=== PATIENT | female | born 1945 | race African-American/Black ===

== ENCOUNTER 2017-12-03 21:46 | Observation (INO) | payer MEDICARE, OTHER ==
[~2017-12-03] VITALS: Ht 152.4 cm; Wt 72.7 kg
[~2017-12-03 21:46] MED LIST: ALBU8I INH; ASPI81 PO; CLOP75 PO; FURO1TAB93 PO; GLIP5 PO; HYDR100T2 PO; IPRA17I INH; ISOS60 PO; LISI-360 PO; METO50 PO; MIRA33502 PO; POTA-243 PO; PROC90TA PO; SIMV40 PO; ZOLP1TAB32 PO
[2017-12-03 21:47] VITALS: BP 226/87; PULSE 74; RESP 20; TEMP 98.7; O2SAT 99
[2017-12-03 22:21] VITALS: O2SAT 98
--- NOTE | 2017-12-03 22:22 | PD ---
HPI Chief Complaint: Complaint Time Seen by Provider: 22:14 Travel History International Travel<30 days: No Contact w/Intl Traveler<30days: No Traveled to known affect area: No History of Present Illness HPI 72-year-old female with ESRD on HD (MWF), last dialyzed today, here for evaluation of lower abdominal pain, dysuria, foul-smelling urine. Symptoms started suddenly at around 6:00 PM. She does still make a little bit of urine. She has had subjective fevers and chills. History of cholecystectomy. No other abdominal surgeries. Patient reports that today while at dialysis she became nauseous and had 3 or 4 episodes of vomiting. She has also had some loose/mucousy bowel movements. Abdominal pain is lower/suprapubic, described as pressure/burning, 10 out of 10, constant, worse with movements. PFSH Past Medical History Arthritis: Yes Asthma: No Autoimmune Disease: Yes Blood Disorders: No Anxiety: No Depression: No Heart Rhythm Problems: No Cancer: Yes (Uterine) Cardiac Catheterization: Yes Cardiovascular Problems: Yes High Cholesterol: Yes Chemotherapy: No Chest Pain: No Congestive Heart Failure: Yes COPD: Yes Cerebrovascular Accident: No Coronary Artery Disease: Yes Diabetes: Yes Patient Takes Glucophage: Yes Diminished Hearing: No Endocrine: Yes Gastrointestinal Disorders: Yes GERD: No Genitourinary: Yes (UTI'S) Headaches: Yes Hepatitis: No Hiatal Hernia: No Hypertension: Yes Immune Disorder: Yes Kidney Stones: No Musculoskeletal: Yes (CHRONIC BACK LOW PAIN) Neurologic: Yes Psychiatric: No Reproductive: No Respiratory: Yes (CHRONIC BRONCHITIS) Immunizations Current: No Migraines: Yes Myocardial Infarction: Yes (X2) Radiation Therapy: No Renal Failure: Yes (RENAL DISEASE) Seizures: No Sleep Apnea: No Thyroid Disease: No Triglycerides - High: Yes Ulcer: No Tetanus Vaccination: < 5 Years Influenza Vaccination: Yes PNEUMOCCOCAL Vaccine (Year): 3 Menopausal: Yes : 2 Para: 2 Past Surgical History Abdominal Surgery: No AICD: No Appendectomy: No Arteriovenous Shunt: No Cardiac Surgery: Yes (STENT) Section: Yes Cholecystectomy: No Coronary Artery Bypass Graft: No Coronary Stent: Yes (x 2 IN 2002) Ear Surgery: No Endocrine Surgery: No Eye Surgery: No Genitourinary Surgery: No Gynecologic Surgery: Yes (HYSTERECTOMY) Hysterectomy: Yes (1975) Insulin Pump: No Joint Replacement: No Neurologic Surgery: No Oral Surgery: No Pacemaker: No Thoracic Surgery: No Tonsillectomy: Yes 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) Family History Family Myocardial Infarction: Yes (brother) Social History Alcohol Use: No Tobacco Use: No Substance Use: No Allergies-Medications (Allergen,Severity, Reaction): Coded Allergies: acetaminophen (Unverified Allergy, Severe, ITCH, 12/03/17) ketorolac (Unverified Allergy, Severe, HIVES, 12/03/17) oxycodone (Unverified Allergy, Severe, ITCH, 12/03/17) *MDRO Multi-Drug Resistant Organism (Verified Allergy, Unknown, 12/03/17) MRSA 03/2008 SPUTUM Reported Meds & Prescriptions Reported Meds & Active Scripts Active Review of Systems Except as stated in HPI: all other systems reviewed are Neg Physical Exam Narrative GENERAL: Well-developed, well-nourished, comfortable, no apparent distress. SKIN: Focused skin assessment warm/dry. HEAD: Atraumatic. Normocephalic. EYES: Pupils equal and round. No scleral icterus. No injection or drainage. ENT: No nasal bleeding or discharge. Mucous membranes pink and moist. NECK: Trachea midline. No JVD. CARDIOVASCULAR: Regular rate and rhythm. No murmur appreciated. Right upper extremity dialysis fistula with thrill and bruit. RESPIRATORY: No accessory muscle use. Clear to auscultation. Breath sounds equal bilaterally. GASTROINTESTINAL: Abdomen soft, nondistended. Moderate lower abdominal/ suprapubic tenderness without peritoneal signs. Rest of abdomen is mildly tender. No hernias. Normal bowel sounds. MUSCULOSKELETAL: No obvious deformities. No clubbing. No cyanosis. No edema. NEUROLOGICAL: Awake and alert. No obvious cranial nerve deficits. Motor grossly within normal limits. Normal speech. PSYCHIATRIC: Appropriate mood and affect; insight and judgment normal. Data Data Last Documented VS Vital Signs Date Time Temp Pulse Resp B/P (MAP) Pulse Ox O2 Delivery O2 Flow Rate FiO2 12/04/17 00:01 71 18 178/74 (108) 100 Room Air 12/03/17 21:47 98.7 Orders Orders Complete Blood Count With Diff (12/03/17 22:20) Comprehensive Metabolic Panel (12/03/17 22:20) Prothrombin Time / Inr (Pt) (12/03/17 22:20) Act Partial Throm Time (Ptt) (12/03/17 22:20) Urinalysis - C+S If Indicated (12/03/17 22:20) Ct Abd/Pel W/O Iv Contrast (12/03/17 22:20) Iv Access Insert/Monitor (12/03/17 22:20) Ecg Monitoring (12/03/17 22:20) Oximetry (12/03/17 22:20) Morphine Inj (Morphine Inj) (12/03/17 22:30) Sodium Chloride 0.9% Flush (Ns Flush) (12/03/17 22:30) Ondansetron Odt (Zofran Odt) (12/03/17 22:30) Urine Culture (12/03/17 22:25) Ceftriaxone Inj (Rocephin Inj) (12/03/17 23:15) Piperacil-Tazo 3.375 Gm Premix (Zosyn 3. (12/04/17 00:15) Labs Laboratory Tests Test 12/03/17 22:25 White Blood Count 10.1 TH/MM3 Red Blood Count 4.28 MIL/MM3 Hemoglobin 12.3 GM/DL Hematocrit 38.3 % Mean Corpuscular Volume 89.5 FL Mean Corpuscular Hemoglobin 28.7 PG Mean Corpuscular Hemoglobin Concent 32.1 % Red Cell Distribution Width 17.0 % Platelet Count 200 TH/MM3 Mean Platelet Volume 9.5 FL Neutrophils (%) (Auto) 73.4 % Lymphocytes (%) (Auto) 15.3 % Monocytes (%) (Auto) 5.5 % Eosinophils (%) (Auto) 5.3 % Basophils (%) (Auto) 0.5 % Neutrophils # (Auto) 7.4 TH/MM3 Lymphocytes # (Auto) 1.6 TH/MM3 Monocytes # (Auto) 0.6 TH/MM3 Eosinophils # (Auto) 0.5 TH/MM3 Basophils # (Auto) 0.0 TH/MM3 CBC Comment DIFF FINAL Differential Comment Prothrombin Time 10.6 SEC Prothromb Time International Ratio 1.0 RATIO Activated Partial Thromboplast Time 27.2 SEC Urine Color YELLOW Urine Turbidity CLOUDY Urine pH 7.0 Urine Specific [place] 1.013 Urine Protein 300 mg/dL Urine Glucose (UA) 70 mg/dL Urine Ketones 10 mg/dL Urine Occult Blood MOD Urine Nitrite NEG Urine Bilirubin NEG Urine Urobilinogen LESS THAN 2.0 MG/DL Urine Leukocyte Esterase LARGE Urine RBC 39 /hpf Urine WBC /hpf Urine WBC Clumps MANY Urine Squamous Epithelial Cells 3 /hpf Urine Bacteria MANY /hpf Urine Mucus MOD /lpf Microscopic Urinalysis Comment CULTURE INDICATED Blood Urea Nitrogen 36 MG/DL Creatinine 4.20 MG/DL Random Glucose 226 MG/DL Total Protein 7.7 GM/DL Albumin 3.5 GM/DL Calcium Level 9.3 MG/DL Alkaline Phosphatase 216 U/L Aspartate Amino Transf (AST/SGOT) 20 U/L Alanine Aminotransferase (ALT/SGPT) 22 U/L Total Bilirubin 0.4 MG/DL Sodium Level 137 MEQ/L Potassium Level 3.9 MEQ/L Chloride Level 100 MEQ/L Carbon Dioxide Level 25.2 MEQ/L Anion Gap 12 MEQ/L Estimat Glomerular Filtration Rate 13 ML/MIN [facility] Medical Decision Making Medical Screen Exam Complete: Yes Emergency Medical Condition: Yes Differential Diagnosis UTI, cystitis, colitis, diverticulitis, appendicitis, gastroenteritis, metabolic abnormality Narrative Course Vital signs reviewed. CBC: WBC 10.1, hemoglobin 12.3, hematocrit 38.3, platelets 200, neutrophils 73.4 %. CMP is remarkable for BUN 36, creatinine 4.2, GFR 13, random glucose 226, otherwise unremarkable. UA: Cloudy, 300 protein, 70 glucose, moderate occult blood, large leukocyte esterase, 39 RBCs, innumerable WBCs, many WBC clumps, many bacteria, moderate mucus. CT abdomen pelvis: CONCLUSION: Abnormal gas collection within the bladder wall with a few gas bubbles outside of the bladder and findings are mostly consistent with gangrenous cystitis. Findings were discussed with Dr Cerda at the time of this dictation at 11:52 hours. Patient was given 1 g of IV Rocephin after her UA resulted. After her CT abdomen and pelvis resulted, I discussed the findings with the patient. She states that couple of months ago she was seen at [facility] for urinary retention and had a Kang catheter placed at that time. She followed up as an outpatient with a urologist whom she cannot recall the name of and was self catheterizing for about a month in the mornings. The last time she self catheterized was in September of this year. 12:00 AM: Case discussed with on-call urologist Dr. Nicole who states that the patient requires antibiotics at this time. No surgical intervention. States that if she is doing well, can be discharged home with oral antibiotics and outpatient follow-up with urology in 1 week. Patient continues to have suprapubic discomfort despite receiving morphine. She will be given a dose of IV Zosyn. Given ongoing pain with above CT findings and UA findings, will admit the patient for further treatment. Case discussed with hospitalist Dr. Smith who will admit the patient to his service. Diagnosis Primary Impression: Cystitis Admitting Information Admitting Physician Requests: Admit Frederick Cerda MD December 03, 2017 22:22
[2017-12-03] MEDS ORDERED: MORPHINE SULFATE 4 MG/ML INJ IV PUSH ONE (22:30)
[2017-12-03] MEDS ORDERED: SODIUM CHLORIDE 0.9% FLUSH 10 ML FLUSH IV FLUSH PRN (22:30)
[2017-12-03] MEDS ORDERED: ONDANSETRON ODT 4 MG TAB PO ONE (22:30)
[2017-12-03 22:45] LABS: AUTOMATED NEUTROPHIL # 7.4 TH/MM3 (1.8-7.7); BASOPHIL % 0.5 % (0.0-2.0); EOSINOPHIL # 0.5 TH/MM3 (0-0.4); EOSINOPHIL % 5.3 % (0.0-4.0); HEMATOCRIT 38.3 % (35.0-46.0); HEMOGLOBIN 12.3 GM/DL (11.6-15.3); LYMPH % 15.3 % (9.0-44.0); LYMPHOCYTE # 1.6 TH/MM3 (1.0-4.8); MEAN CELL VOLUME 89.5 FL (80.0-100.0); MEAN CORPUSCULAR HEMOGLOBIN 28.7 PG (27.0-34.0); MEAN CORPUSCULAR HGB CONC 32.1 % (32.0-36.0); MEAN PLATELET VOLUME 9.5 FL (7.0-11.0); MONO % 5.5 % (0.0-8.0); MONOCYTE # 0.6 TH/MM3 (0-0.9); NEUT % 73.4 % (16.0-70.0); PLATELET COUNT 200 TH/MM3 (150-450); RED BLOOD COUNT 4.28 MIL/MM3 (4.00-5.30); WHITE BLOOD COUNT 10.1 TH/MM3 (4.0-11.0)
[2017-12-03 22:57] LABS: PROTHROMBIN TIME - PATIENT 10.6 SEC (9.8-11.6)
[2017-12-03 23:02] LABS: ALBUMIN 3.5 GM/DL (3.4-5.0); ALT (GPT) 22 U/L (10-53); AST (GOT) 20 U/L (15-37); BICARBONATE 25.2 MEQ/L (21.0-32.0); BLOOD UREA NITROGEN 36 MG/DL (7-18); CALCIUM 9.3 MG/DL (8.5-10.1); CHLORIDE 100 MEQ/L (98-107); GLOMERULAR FILTRATION RATE 13 ML/MIN (>89); GLUCOSE,RANDOM 226 MG/DL (74-106); SODIUM (NA) 137 MEQ/L (136-145)
[2017-12-03 23:04] LABS: ALKALINE PHOSPHATASE 216 U/L (45-117); TOTAL BILIRUBIN ADULT 0.4 MG/DL (0.2-1.0); TOTAL PROTEIN 7.7 GM/DL (6.4-8.2)
[2017-12-03 23:08] LABS: BACTERIA, URINE MANY /hpf; BILIRUBIN, URINE NEG (NEG); BLOOD, URINE MOD (NEG); GLUCOSE,URINE 70 mg/dL (NEG); KETONE, URINE 10 mg/dL (NEG); MUCUS URINE MOD /lpf (OCC); NITRITE,URINE NEG (NEG); SQUAMOUS EPITHELIAL CELL URINE 3 /hpf (0-5); URINE COLOR YELLOW (YELLW/STRAW); URINE LEUKOCYTE ESTERASE LARGE (NEG); WHITE BLOOD CELL CLUMPS MANY
[2017-12-03] MEDS ORDERED: cefTRIAXone INJ 1,000 MG in SODIUM CHLORIDE 0.9% INJ 100 ML IV ONE (23:15)
--- NOTE | 2017-12-03 23:56 | RADRPT ---
EXAM DATE: 12/03/2017 11:43 PM EDT AGE/SEX: 72 years / Female INDICATIONS: Abdomen pain with vomiting. CLINICAL DATA: This is the patient's initial encounter. Patient reports that signs and symptoms have been present for 1 day and indicates a pain score of 5/10. MEDICAL/SURGICAL HISTORY: Cardiovascular disease. Hypertension. Diabetes mellitus type II. C OPD Renal failure Dialysis Uterine cancer Hysterectomy. Coronary artery stent. RADIATION DOSE: 18.91 CTDI (mGy) [place] [facility] [place]AST, 01/10/2013. . TECHNIQUE: Multiple contiguous axial images were obtained through the abdomen. Images were obtained using multiple row detector helical technique. Using dose reduction techniques, radiation dose was ke pt as low as reasonably achievable to obtain optimal diagnostic quality images. FINDINGS: Abdomen CT: The liver, spleen, pancreas, adrenals are unremarkable. The kidneys are small bilaterally and there i s a small cyst in the left kidney. There is no evidence for any appreciable pathological adenopathy, free fluid, or bowel obstruction. Tiny pericardial effusion is seen. There are atherosclerotic calci fications involving the aorta and iliac arteries chronic in nature. Pelvic CT: There is no evidence for mass, abscess formation, or any significant adenopathy within the pelvis. T here is abnormal gas collection involving the wall of the bladder diffusely. There are a few bubbles of gas that are outside the bladder intraperitoneal within the pelvis. CONCLUSION: Abnormal gas collection within the bladder wall with a few gas bubbles outside of the bl adder and findings are mostly consistent with gangrenous cystitis. Findings were discussed with Dr Jose bunn at the time of this dictation at 11:52 hours. Electronically signed by: Alva Rolon MD 12/03/2017 11:54 PM EDT
[2017-12-04] VITALS (9 sets, daily range): BP systolic 135–193; BP diastolic 63–80; PULSE 62–75; RESP 16–20; TEMP 97.5–98.4; O2SAT 97–100
[2017-12-04] MEDS ORDERED: PIPERACIL-TAZO 3.375 GM PREMIX 50 ML IV ONE (00:15)
[2017-12-04] MEDS ORDERED: SENNOSIDES 8.6 MG TAB PO PRN (00:30)
[2017-12-04] MEDS ORDERED: LACTULOSE SYRUP 20 GM/30 ML CUP PO PRN (00:30)
[2017-12-04] MEDS ORDERED: NALOXONE HCL 0.4 MG/ML AMP IV PUSH PRN (00:30)
[2017-12-04] MEDS ORDERED: MAGNESIUM HYDROXIDE SUSP 30 ML CUP PO PRN (00:30)
[2017-12-04] MEDS ORDERED: BISACODYL 10 MG SUPP RECTAL PRN (00:30)
[2017-12-04] MEDS ORDERED: SODIUM CHLORIDE 0.9% FLUSH 10 ML FLUSH IV FLUSH PRN ×2 (00:30→15:15)
[2017-12-04] MEDS ORDERED: HEPARIN SODIUM - SQ 10,000 UNITS/ML VIAL SQ SCH (02:00)
--- NOTE | 2017-12-04 02:03 | HHI.HP ---
[facility] Admission Diagnosis Concern for Gangrenous Cystitis Diagnoses: (1) Cystitis Chief Complaint: Abdominal pain Travel History International Travel<30 Days: No Contact w/Intl Traveler <30 Da: No Traveled to Known Affected Are: No History of Present Illness Ms. Stewart is a 72 y/o female with a history of ESRD on HD --, c. difficile, diabetes mellitus, CAD s/p stenting, hyperlipidemia, and COPD who presents to the emergency room on 12/03/2017 complaining of severe lower abdominal pain, dysuria, and possibly foul-smelling urine. An abdomen/pelvis CT performed in the emergency room showed findings consistent with gangrenous cystitis and the patient was admitted to the [facility] service for medical management. The patient is seen in the ER. She reports acute onset of suprapubic pain starting at about 6 PM on 12/03/2017. She states that she had accidentally soiled her diaper with an extensive amount of stool because she was unable to hold it to get to the bathroom. She states that she also had urinated. She states she was not sure what was foul-smelling, the urine or the stool. The patient states she was self-catheterizing for about a month due to retention - last self-cathed in September 2017. She had had some dizziness accompanied by nausea with vomiting earlier during dialysis (12/03) with a total of about 4 episodes and none since. She reports a fever of 102 on 12/02/2017 and none since. Patient states her suprapubic abdominal pain is currently 7/10 - states it was 10/10 on presentation. Review of Systems Except as stated in HPI: all other systems reviewed are Neg Past Family Social History Past Medical History Coronary artery disease status post cardiac stent x 2 2007 End-stage renal disease on hemodialysis - follows with Dr. Eason Hypertension Hyperlipidemia Chronic neck and back pain COPD Type 2 Diabetes Mellitus Past Surgical History Cholecystectomy Cardiac stent 2 Hysterectomy Bilateral carpal tunnel release Tonsillectomy . Allergies: Coded Allergies: acetaminophen (Unverified Allergy, Severe, ITCH, 12/03/17) ketorolac (Unverified Allergy, Severe, HIVES, 12/03/17) oxycodone (Unverified Allergy, Severe, ITCH, 12/03/17) *MDRO Multi-Drug Resistant Organism (Verified Allergy, Unknown, 12/03/17) MRSA 03/2008 SPUTUM Family History Brother with myocardial infarction No other family members with end-stage renal disease . Social History Tobacco: Never smoked but was exposed to extensive secondhand smoke Alcohol: Denies Illicit Drugs: Denies . Physical Exam Vital Signs Vital Signs Date Time Temp Pulse Resp B/P (MAP) Pulse Ox O2 Delivery O2 Flow Rate FiO2 12/04/17 01:42 73 16 193/80 (117) 99 12/04/17 01:30 12/04/17 00:01 71 18 178/74 (108) 100 Room Air 12/03/17 22:21 98 Room Air 12/03/17 21:47 98.7 74 20 226/87 (133) 99 Physical Exam GENERAL: This is a well-nourished, well-developed patient, in no apparent distress but complaining of pain. SKIN: No rashes, ecchymoses or lesions. Cool and dry. HEAD: Atraumatic. Normocephalic. EYES: No scleral icterus. No injection or drainage. ENT: Nose without bleeding, purulent drainage. NECK: Trachea midline. No JVD. CARDIOVASCULAR: Regular rate and rhythm without murmurs, gallops, or rubs. pitting bilateral ankle edema noted. RESPIRATORY: Clear to auscultation. Breath sounds equal bilaterally. No wheezes , rales, or rhonchi. GASTROINTESTINAL: Hyperactive bowel sounds. Abdomen is obese, soft. No guarding. Tenderness in lower abdomen with palpation. MUSCULOSKELETAL: Extremities without clubbing, cyanosis. NEUROLOGICAL: Awake and alert. Motor and sensory grossly within normal limits. Normal speech. . Laboratory Laboratory Tests Test 12/03/17 22:25 White Blood Count 10.1 Red Blood Count 4.28 Hemoglobin 12.3 Hematocrit 38.3 Mean Corpuscular Volume 89.5 Mean Corpuscular Hemoglobin 28.7 Mean Corpuscular Hemoglobin Concent 32.1 Red Cell Distribution Width 17.0 Platelet Count 200 Mean Platelet Volume 9.5 Neutrophils (%) (Auto) 73.4 Lymphocytes (%) (Auto) 15.3 Monocytes (%) (Auto) 5.5 Eosinophils (%) (Auto) 5.3 Basophils (%) (Auto) 0.5 Neutrophils # (Auto) 7.4 Lymphocytes # (Auto) 1.6 Monocytes # (Auto) 0.6 Eosinophils # (Auto) 0.5 Basophils # (Auto) 0.0 CBC Comment DIFF FINAL Differential Comment Prothrombin Time 10.6 Prothromb Time International Ratio 1.0 Activated Partial Thromboplast Time 27.2 Urine Color YELLOW Urine Turbidity CLOUDY Urine pH 7.0 Urine Specific [place] 1.013 Urine Protein 300 Urine Glucose (UA) 70 Urine Ketones 10 Urine Occult Blood MOD Urine Nitrite NEG Urine Bilirubin NEG Urine Urobilinogen LESS THAN 2.0 Urine Leukocyte Esterase LARGE Urine RBC 39 Urine WBC Urine WBC Clumps MANY Urine Squamous Epithelial Cells 3 Urine Bacteria MANY Urine Mucus MOD Microscopic Urinalysis Comment CULTURE INDICATED Blood Urea Nitrogen 36 Creatinine 4.20 Random Glucose 226 Total Protein 7.7 Albumin 3.5 Calcium Level 9.3 Alkaline Phosphatase 216 Aspartate Amino Transf (AST/SGOT) 20 Alanine Aminotransferase (ALT/SGPT) 22 Total Bilirubin 0.4 Sodium Level 137 Potassium Level 3.9 Chloride Level 100 Carbon Dioxide Level 25.2 Anion Gap 12 Estimat Glomerular Filtration Rate 13 Date/Time Source Procedure Growth Status 12/03/17 22:25 Urine Clean Catch Urine Culture Pending Received Result Diagram: 12/03/17222412/03/172224 Imaging . Last Impressions Abdomen/Pelvis CT 12/03/172219 Signed Impressions: CONCLUSION: Abnormal gas collection within the bladder wall with a few gas marvel bles outside of the bladder and findings are mostly consistent with gangrenous cystitis. Findings were discussed with Dr Cerda at the time of this dictation a t 11:52 hours. Caprini VTE Risk Assessment Caprini VTE Risk Assessment: Mod/High Risk (score >= 2) Caprini Risk Assessment Model Point Value = 1 Point Value = 2 Point Value = 3 Point Value = 5 Age 41-60 Minor surgery BMI > 25 kg/m2 Swollen legs Varicose veins or History of unexplained or recurrent spontaneous Oral contraceptives or hormone replacement Sepsis (< 1 month) Serious lung disease, including pneumonia (< 1 month) Abnormal pulmonary function Acute myocardial infarction Congestive heart failure (< 1 month) History of inflammatory bowel disease Medical patient at bed rest Age 61-74 Arthroscopic surgery Major open surgery (> 45 min) Laparoscopic surgery (> 45 min) Malignancy Confined to bed (> 72 hours) Immobilizing plaster cast Central venous access Age >= 75 History of VTE Family history of VTE Factor V Leiden Prothrombin [id number] Lupus anticoagulant Anticardiolipin antibodies Elevated serum homocysteine Heparin-induced thrombocytopenia Other congenital or acquired thrombophilia Stroke (< 1 month) Elective arthroplasty Hip, pelvis, or leg fracture Acute spinal cord injury (< 1 month) Prophylaxis Regimen Total Risk Factor Score Risk Level Prophylaxis Regimen 0-1 Low Early ambulation 2 Moderate Order ONE of the following: *Sequential Compression Device (SCD) *Heparin 5000 units SQ BID 3-4 Higher Order ONE of the following medications: *Heparin 5000 units SQ TID *Enoxaparin/Lovenox 40 mg SQ daily (WT < 150 kg, CrCl > 30 mL/min) *Enoxaparin/Lovenox 30 mg SQ daily (WT < 150 kg, CrCl > 10-29 mL/min) *Enoxaparin/Lovenox 30 mg SQ BID (WT < 150 kg, CrCl > 30 mL/min) AND/OR *Sequential Compression Device (SCD) 5 or more Highest Order ONE of the following medications: *Heparin 5000 units SQ TID (Preferred with Epidurals) *Enoxaparin/Lovenox 40 mg SQ daily (WT < 150 kg, CrCl > 30 mL/min) *Enoxaparin/Lovenox 30 mg SQ daily (WT < 150 kg, CrCl > 10-29 mL/min) *Enoxaparin/Lovenox 30 mg SQ BID (WT < 150 kg, CrCl > 30 mL/min) AND *Sequential Compression Device (SCD) Assessment and Plan Problem List: (1) Cystitis ICD Code: N30.90 - Cystitis, unspecified without hematuria Status: Acute Assessment and Plan Ms. Stewart is a 72 y/o female with a history of ESRD on HD -, c. difficile, diabetes mellitus, CAD s/p stenting, hyperlipidemia, and COPD who presents to the emergency room on 12/03/2017 complaining of severe lower abdominal pain, dysuria, and possibly foul-smelling urine. An abdomen/pelvis CT performed in the emergency room showed findings consistent with gangrenous cystitis and the patient was admitted to the [facility]ist service for medical management. Cystitis with abd/pelvis CT findings consistent with gangrenous cystitis - initially Ceftriaxone but patient remained painful despite iv morphine and initial antibiotics, so antibiotics were switched to: Zosyn 3.375 mg IV q6h - Remained painful despite morphine and antibiotics in ER; will request official urology consultation - appreciate assistance - [place] 5/325 mg p.o. q4h as needed for pain > 5 with Morphine 2 mg IV q3h PRN breakthrough pain - await urine culture results and adjust treatment if needed ESRD on HD - consult Dr. Eason, nephrology - assistance appreciated Abdominal pain/N/V/diarrhea - check stool for c. difficile - Prochlorperazine 5 mg IV q4h PRN nausea/vomiting Type 2 Diabetes Mellitus - Accu-Cheks before meals and at bedtime with low-dose NovoLog sliding scale coverage - Hypoglycemia protocol - Monitor trends and blood glucose readings and adjust treatments as indicated DVT prophylaxis - heparin 5000 units subq q8h awaiting medication reconciliation completion . Discussed Condition With patient, her daughter (with her permission), and nurse . Viviana Cardona December 04, 2017 02:03
[2017-12-04] MEDS: ACETAMINOPHEN/HYDROcodone 325 MG/5 MG TAB PO PRN ×2 (02:20→22:02)
[2017-12-04] MEDS ORDERED: GLUCAGON 1 MG/ML VIAL OTHER PRN (02:45)
[2017-12-04] MEDS ORDERED: DEXTROSE 50% IN WATER 50 ML VIAL(D50) IV PUSH PRN (02:45)
[2017-12-04] MEDS ORDERED: MORPHINE SULFATE 4 MG/ML INJ IV PUSH PRN (03:00)
[2017-12-04] MEDS ORDERED: PROCHLORPERAZINE INJ 10 MG/2 ML VIAL IV PUSH PRN (03:00)
[2017-12-04] MEDS ORDERED: PIPERACIL-TAZO 3.375 GM PREMIX 50 ML IV SCH (06:00)
[2017-12-04] MEDS: INSULIN ASPART SUPPLEMENTAL SCALE SQ SCH ×4 (08:00→21:00)
[2017-12-04] MEDS ORDERED: cefTRIAXone INJ 1,000 MG in SODIUM CHLORIDE 0.9% INJ 100 ML IV SCH (09:00)
--- NOTE | 2017-12-04 09:26 | HHI.PR ---
Subjective Remarks Follow-up for gangrenous cystitis. Patient reports mild improvement of her lower abdominal/suprapubic pain overnight. She reports an episode of feeling very warm with sweats overnight, now improved. She continues to make urine. Denies any further nausea or vomiting. She states her appetite has always been very poor since she started dialysis 4-5 years ago. Denies any further diarrhea today. Denies any other medical complaints at this time. Objective Vitals Vital Signs Date Time Temp Pulse Resp B/P (MAP) Pulse Ox O2 Delivery O2 Flow Rate FiO2 12/04/17 07:02 98.0 64 16 142/64 (90) 98 12/04/17 06:11 21 12/04/17 05:40 18 12/04/17 04:06 98.4 68 17 135/63 (87) 97 12/04/17 03:20 18 12/04/17 01:42 73 16 193/80 (117) 99 12/04/17 01:30 12/04/17 00:01 71 18 178/74 (108) 100 Room Air 12/03/17 22:21 98 Room Air 12/03/17 21:47 98.7 74 20 226/87 (133) 99 I/O 12/03/17 12/03/17 12/03/17 12/04/17 12/04/17 12/04/17 07:00 15:00 23:00 07:00 15:00 23:00 Intake Total 150 ml Balance 150 ml Intake IV Total 150 ml Result Diagram: 12/03/17222412/03/172224 Imaging Last Impressions Abdomen/Pelvis CT 12/03/170 Signed Impressions: CONCLUSION: Abnormal gas collection within the bladder wall with a few gas marvel bles outside of the bladder and findings are mostly consistent with gangrenous cystitis. Findings were discussed with Dr Cerda at the time of this dictation a t 11:52 hours. Objective Remarks GENERAL: Well-nourished, well-developed pleasant elderly female patient in [facility]. SKIN: Warm and dry. No rash. HEENT: Normocephalic. Atraumatic. Pupils equal and round. Mucous membranes pink and moist. CARDIOVASCULAR: Regular rate and rhythm. No murmur appreciated. RESPIRATORY: No accessory muscle use. Clear to auscultation. Breath sounds equal bilaterally. GASTROINTESTINAL: Abdomen soft, non-tender, nondistended. Normoactive bowel sounds x4. MUSCULOSKELETAL: No obvious deformities. Trace bilateral pedal edema. RUE AV fistula with +thrill/bruit. NEUROLOGICAL: Awake and alert. No obvious cranial nerve deficits. Motor grossly within normal limits. Moving all extremities spontaneously. Normal speech. PSYCHIATRIC: Appropriate mood and affect; insight and judgment normal. Medications and IVs Current Medications Medications (Trade) Dose Ordered Sig/Lizbeth Route Start Time Stop Time Status Last Admin (NS Flush) 2 ml UNSCH PRN IV FLUSH 12/04/17 00:30 (NS Flush) 2 ml BID IV FLUSH 12/04/17 09:00 (Tylenol) 650 mg Q4H PRN PO 12/04/17 00:30 (Narcan Inj) 0.4 mg UNSCH PRN IV PUSH 12/04/17 00:30 (Milk Of Magnesia Liq) 30 ml Q12H PRN PO 12/04/17 00:30 (Senokot) 17.2 mg Q12H PRN PO 12/04/17 00:30 (Dulcolax Supp) 10 mg DAILY PRN RECTAL 12/04/17 00:30 (Lactulose Liq) 30 ml DAILY PRN PO 12/04/17 00:30 ([place] 5-325 Mg) 1 tab Q4H PRN PO 12/04/17 02:00 12/04/17 02:20 (D50w (Vial) Inj) 50 ml UNSCH PRN IV PUSH 12/04/17 02:45 (Glucagon Inj) 1 mg UNSCH PRN OTHER 12/04/17 02:45 (NovoLOG SUPPLEMENTAL SCALE) 1 ACHS SLIDING SCALE SQ 12/04/17 08:00 Piperacillin Sod/ Tazobactam Sod 50 ml @ 100 mls/hr Q6H IV 12/04/17 06:00 12/04/17 05:28 (Morphine Inj) 2 mg Q3H PRN IV PUSH 12/04/17 03:00 12/04/17 05:35 (Heparin Inj) 5,000 units Q8HR SQ 12/04/17 10:30 (Compazine Inj) 5 mg Q4H PRN IV PUSH 12/04/17 03:00 A/P Problem List: (1) Cystitis ICD Code: N30.90 - Cystitis, unspecified without hematuria Status: Acute Assessment and Plan 72 y/o female with a history of ESRD on HD M-W-, c. difficile, diabetes mellitus, CAD s/p stenting, hyperlipidemia, and COPD who presents to the ED 12/03 complaining of severe lower abdominal pain, dysuria, and foul-smelling urine. An abdomen/pelvis CT performed in the emergency room showed findings consistent with gangrenous cystitis and the patient was [facility]. Acute Gangrenous Cystitis: acute, +dysuria, suprapubic pain, foul smelling urine. WBC 10K, afebrile. However patient reported fever of 102 on 12/02. -CT abd/pelvis reviewed, shows abnormal gas collection within the bladder wall with a few gas blebs outside of the bladder, consistent with gangrenous cystitis -Continue antibiotics with IV Zosyn 3.375 mg IV q6h -Pt still very painful despite IV morphine and abx in the ER, therefore consulted urology - appreciate assistance -Continue pain control with [place] 5/325 mg p.o. q4h prn with Morphine 2 mg IV q3h PRN breakthrough pain -await urine culture results and adjust treatment if needed -Consult infectious disease for further assistance with antibiotics ESRD on HD: chronic, on HD MWF -consult Dr. Eason, nephrology - assistance appreciated -renal diet Abdominal pain/N/V/diarrhea -check stool for c. difficile -Prochlorperazine 5 mg IV q4h PRN nausea/vomiting -Symptoms improved with initiation of antibiotics for cystitis as above Type 2 Diabetes Mellitus -Monitor Accu-Cheks and cover with low-dose NovoLog sliding scale -Hypoglycemia protocol -Monitor trends and blood glucose readings and adjust treatments as indicated Insomnia: patient reports chronic insomnia and worse while in hospital, requesting medication to help her sleep -will trial Restoril 15mg hs prn insomnia DVT prophylaxis- heparin 5000 units subq q8h Discharge Planning Discharge pending urology consult, infectious disease consult, and urine culture. Will likely need additional 2-3 days of hospitalization for IV antibiotics. Kecia Vázquez PA-C December 04, 2017 9:26 am
[2017-12-04] MEDS: SODIUM CHLORIDE 0.9% FLUSH 10 ML FLUSH IV FLUSH SCH ×2 (09:35→22:01)
[2017-12-04] MEDS: ACETAMINOPHEN 325 MG TAB PO PRN (09:35)
[2017-12-04] MEDS: HEPARIN SODIUM - SQ 10,000 UNITS/ML VIAL SQ SCH ×3 (09:35→22:00)
[2017-12-04] MEDS ORDERED: TEMAZEPAM 15 MG CAP PO PRN (09:45)
[2017-12-04] MEDS ORDERED: POTA10TA2 PO (09:55)
[2017-12-04] MEDS ORDERED: PLAV75TA29 PO (09:55)
[2017-12-04] MEDS ORDERED: LISI10TA3 PO ×2 (09:55→11:07)
[2017-12-04] MEDS ORDERED: IPRA17I INH (09:55)
[2017-12-04] MEDS ORDERED: FURO1TAB60 PO (09:55)
[2017-12-04] MEDS ORDERED: ASPI-516 PO (09:55)
[2017-12-04] MEDS ORDERED: GLIP5TAB8 PO (09:55)
[2017-12-04] MEDS ORDERED: HYDR-3800 PO (09:55)
[2017-12-04] MEDS ORDERED: VENTAER INH (09:55)
[2017-12-04] MEDS ORDERED: SIMV40TA PO (09:55)
[2017-12-04] MEDS ORDERED: SENS60TA PO (10:59)
[2017-12-04] MEDS ORDERED: SEVEL800 PO (10:59)
[2017-12-04] MEDS ORDERED: REGL5TAB PO (10:59)
[2017-12-04] MEDS ORDERED: SENS90TA PO (10:59)
[2017-12-04] MEDS ORDERED: SIMV20TA PO (11:07)
[2017-12-04] MEDS ORDERED: FUROSEMIDE 40 MG TAB PO ONE (11:15)
[2017-12-04] MEDS ORDERED: METOCLOPRAMIDE HCL 10 MG TAB PO PRN (11:15)
--- NOTE | 2017-12-04 12:27 | PD.ID.CON ---
History of Present Illness Service ID Consult Requested By Isis TORRES Reason for Consult emphysematous cystitis Primary Care Physician Unknown Diagnoses: History of Present Illness 72 F with DM, ESRD/HD, oliguric, voids every other day occasionally daily developped 1 day low abdominal pain, disuria, cloudy foul smelling urine no fever chills Presetned with above complaints to [place] CT ab/pel showed air in bladder wall startedon broadspectrum abx UA abnormal, imnnumerable WBC, + RBC, + LE, clx P no fever, no leukocyrtosys , no ,lactic acidosis Review of Systems Gastrointestinal: COMPLAINS OF: Abdominal pain, Nausea Genitourinary: COMPLAINS OF: Dysuria Except as stated in HPI: all other systems reviewed are Neg Past Family Social History Allergies: Coded Allergies: acetaminophen (Unverified Allergy, Severe, ITCH, 12/03/17) ketorolac (Unverified Allergy, Severe, HIVES, 12/03/17) oxycodone (Unverified Allergy, Severe, ITCH, 12/03/17) *MDRO Multi-Drug Resistant Organism (Verified Allergy, Unknown, 12/03/17) MRSA 03/2008 SPUTUM Past Medical History Coronary artery disease status post cardiac stent x 2 2007 End-stage renal disease on hemodialysis - follows with Dr. Eason Hypertension Hyperlipidemia Chronic neck and back pain COPD Type 2 Diabetes Mellitus Past Surgical History Cholecystectomy Cardiac stent 2 Hysterectomy Bilateral carpal tunnel release Tonsillectomy . Active Ordered Medications Medications where reviewed in EMR Antibiotics Include: alpesh dias Family History Brother with myocardial infarction No other family members with end-stage renal disease Social History Tobacco: Never smoked but was exposed to extensive secondhand smoke Alcohol: Denies Illicit Drugs: Denies Physical Exam Vital Signs Vital Signs Date Time Temp Pulse Resp B/P (MAP) Pulse Ox O2 Delivery O2 Flow Rate FiO2 12/04/17 10:55 97.6 63 20 153/70 (97) 98 12/04/17 08:02 98 21 12/04/17 07:02 98.0 64 16 142/64 (90) 98 12/04/17 06:11 21 12/04/17 05:40 18 12/04/17 04:06 98.4 68 17 135/63 (87) 97 12/04/17 03:20 18 12/04/17 01:42 73 16 193/80 (117) 99 12/04/17 01:30 12/04/17 00:01 71 18 178/74 (108) 100 Room Air 12/03/17 22:21 98 Room Air 12/03/17 21:47 98.7 74 20 226/87 (133) 99 Physical Exam CONSTITUTIONAL/GENERAL: This is an adequately nourished patient, in no apparent distress. TUBES/LINES/DRAINS: RUE AVfitula i place with excellent thrill no e/o infx SKIN: No jaundice, rashes, or lesions. Skin temperature appropriate. Not diaphoretic. HEAD: Atraumatic. Normocephalic. EYES: Pupils equal and round and reactive. Extraocular motions intact. No scleral icterus. No injection or drainage. Fundi not examined. ENT: Hearing grossly normal. Nose without bleeding or purulent drainage. Throat without visible erythema, exudates, masses, or lesions. NECK: Trachea midline. Supple, nontender. No palpable thyroid enlargement or nodularity. CARDIOVASCULAR: Regular rate and rhythm without murmurs, gallops, or rubs. No JVD. Peripheral pulses diminished on bl feet RESPIRATORY/CHEST: Symmetric, unlabored respirations. Clear to auscultation. Breath sounds equal bilaterally. No wheezes, rales, or rhonchi. GASTROINTESTINAL: Abdomen soft, non-tender, nondistended. No hepato-splenomegaly , or palpable masses. No guarding. Bowel sounds present. GENITOURINARY: Without palpable bladder distension. MUSCULOSKELETAL: Extremities without clubbing, cyanosis, or edema. No joint tenderness or effusion noted. No calf tenderness. No mottling or clubbing. LYMPHATICS: No palpable cervical or supraclavicular adenopathy. NEUROLOGICAL: Awake and alert. Motor and sensory grossly within normal limits. Follows commands. Clear speech . Moves all extremities. PSYCHIATRIC: No obvious anxiety/depression. no apparent hallucinations or other psychotic thought process. Laboratory Laboratory Tests Test 12/03/17 22:25 White Blood Count 10.1 Red Blood Count 4.28 Hemoglobin 12.3 Hematocrit 38.3 Mean Corpuscular Volume 89.5 Mean Corpuscular Hemoglobin 28.7 Mean Corpuscular Hemoglobin Concent 32.1 Red Cell Distribution Width 17.0 Platelet Count 200 Mean Platelet Volume 9.5 Neutrophils (%) (Auto) 73.4 Lymphocytes (%) (Auto) 15.3 Monocytes (%) (Auto) 5.5 Eosinophils (%) (Auto) 5.3 Basophils (%) (Auto) 0.5 Neutrophils # (Auto) 7.4 Lymphocytes # (Auto) 1.6 Monocytes # (Auto) 0.6 Eosinophils # (Auto) 0.5 Basophils # (Auto) 0.0 CBC Comment DIFF FINAL Differential Comment Prothrombin Time 10.6 Prothromb Time International Ratio 1.0 Activated Partial Thromboplast Time 27.2 Urine Color YELLOW Urine Turbidity CLOUDY Urine pH 7.0 Urine Specific [place] 1.013 Urine Protein 300 Urine Glucose (UA) 70 Urine Ketones 10 Urine Occult Blood MOD Urine Nitrite NEG Urine Bilirubin NEG Urine Urobilinogen LESS THAN 2.0 Urine Leukocyte Esterase LARGE Urine RBC 39 Urine WBC Urine WBC Clumps MANY Urine Squamous Epithelial Cells 3 Urine Bacteria MANY Urine Mucus MOD Microscopic Urinalysis Comment CULTURE INDICATED Blood Urea Nitrogen 36 Creatinine 4.20 Random Glucose 226 Total Protein 7.7 Albumin 3.5 Calcium Level 9.3 Alkaline Phosphatase 216 Aspartate Amino Transf (AST/SGOT) 20 Alanine Aminotransferase (ALT/SGPT) 22 Total Bilirubin 0.4 Sodium Level 137 Potassium Level 3.9 Chloride Level 100 Carbon Dioxide Level 25.2 Anion Gap 12 Estimat Glomerular Filtration Rate 13 Date/Time Source Procedure Growth Status 12/03/17 22:25 Urine Clean Catch Urine Culture Pending Received Result Diagram: 12/03/17222412/03/172224 Imaging Last Impressions Abdomen/Pelvis CT 12/03/172219 Signed Impressions: CONCLUSION: Abnormal gas collection within the bladder wall with a few gas marvel bles outside of the bladder and findings are mostly consistent with gangrenous cystitis. Findings were discussed with Dr Cerda at the time of this dictation a t 11:52 hours. Assessment and Plan Assessment and Plan DM ESRD with oliguria Emphasematous cystytis - quite distended bladder on scan with residfula urine PLAN; cont zosyn barreto fu clx urine Morena Bennett MD December 04, 2017 12:27
[2017-12-04] MEDS: LISINOPRIL 10 MG TAB PO SCH (12:58)
[2017-12-04] MEDS: SEVELAMER CARBONATE 800 MG TAB PO SCH ×2 (13:52→18:06)
[2017-12-04] MEDS: PIPERACIL-TAZO 2.25 GM PREMIX 50 ML IV SCH ×2 (14:17→22:01)
[2017-12-04] MEDS ORDERED: SODIUM CHLOR 0.9% 1000 ML INJ 1,000 ML OTHER PRN ×2 (15:10)
[2017-12-04] MEDS ORDERED: SODIUM CHLOR 0.9% 1000 ML INJ 1,000 ML IV PRN (15:10)
--- NOTE | 2017-12-04 15:10 | PD.CONS ---
HPI Service Nephrology Consult Requested By Dr. Flowers Reason for Consult ESRD Primary Care Physician Unknown History of Present Illness Patient is a 72-year-old with end-stage renal disease who goes to hemodialysis Sunday, Sunday and Sunday, she went yesterday and said and evening she started having abdominal pain he has some nausea and vomiting and the pain got severe and she has to come to the emergency CT of the abdomen and pelvis showed gangrenous cystitis, patient has been admitted she is said she wears pull-ups due to incontinence of the stool and sometimes she is not aware that stool is coming, patient has been admitted, follows with Dr. Foster. Review of Systems Constitutional: COMPLAINS OF: Fatigue, Fever Gastrointestinal: COMPLAINS OF: Abdominal pain, Nausea, Vomiting Genitourinary: COMPLAINS OF: Urinary frequency Musculoskeletal: COMPLAINS OF: Joint pain, Muscle aches, Back pain Psychiatric: COMPLAINS OF: Anxiety Past Family Social History Allergies: Coded Allergies: acetaminophen (Unverified Allergy, Severe, ITCH, 12/03/17) ketorolac (Unverified Allergy, Severe, HIVES, 12/03/17) oxycodone (Unverified Allergy, Severe, ITCH, 12/03/17) *MDRO Multi-Drug Resistant Organism (Verified Allergy, Unknown, 12/03/17) MRSA 03/2008 SPUTUM Past Medical History Coronary artery disease status post cardiac stent x 2 2007 End-stage renal disease on hemodialysis - follows with Dr. Eason Hypertension Hyperlipidemia Chronic neck and back pain COPD Type 2 Diabetes Mellitus Past Surgical History AV fistula right arm Cholecystectomy Cardiac stent 2 Hysterectomy Bilateral carpal tunnel release Tonsillectomy Reported Medications Reported Meds & Active Scripts Active Reported Lisinopril 10 Mg Tab 10 Mg PO DAILY Simvastatin 20 Mg Tab 20 Mg PO HS Reglan (Metoclopramide HCl) 5 Mg Tab 5 Mg PO QID Sensipar (Cinacalcet) 90 Mg Tab 120 Mg PO WITH DINNER // Renvela (Sevelamer Carbonate) 800 Mg Tab 800 Mg PO TID Sensipar (Cinacalcet) 60 Mg Tab 60 Mg PO WITH DINNER ///S Potassium Chloride ER (Potassium Chloride) 10 Meq Tab 10 Meq PO HS Atrovent HFA 12.9 GM Inh (Ipratropium [place]) 17 Mcg/Actuation Aer 2 Puff INH QID Hydralazine HCl 50 Mg Tablet 100 Mg PO TID Ventolin Hfa 18 GM Inh (Albuterol Sulfate) 90 Mcg/Act Aer 2 Puff INH Q6H PRN Glipizide 5 Mg Tab 5 Mg PO BIDAC Take 30 minutes before a meal Lasix (Furosemide) 40 Mg Tab 40 Mg PO T,TH,SAT Aspirin 81 Mg Chew 81 Mg PO DAILY Plavix (Clopidogrel Bisulfate) 75 Mg Tab 75 Mg PO DAILY Active Ordered Medications Current Medications Medications (Trade) Dose Ordered Sig/Lizbeth Route Start Time Stop Time Status Last Admin (NS Flush) 2 ml UNSCH PRN IV FLUSH 12/04/17 00:30 (NS Flush) 2 ml BID IV FLUSH 12/04/17 09:00 12/04/17 09:35 (Tylenol) 650 mg Q4H PRN PO 12/04/17 00:30 12/04/17 09:35 (Narcan Inj) 0.4 mg UNSCH PRN IV PUSH 12/04/17 00:30 (Milk Of Magnesia Liq) 30 ml Q12H PRN PO 12/04/17 00:30 (Senokot) 17.2 mg Q12H PRN PO 12/04/17 00:30 (Dulcolax Supp) 10 mg DAILY PRN RECTAL 12/04/17 00:30 (Lactulose Liq) 30 ml DAILY PRN PO 12/04/17 00:30 ([address] 5-325 Mg) 1 tab Q4H PRN PO 12/04/17 02:00 12/04/17 02:20 (D50w (Vial) Inj) 50 ml UNSCH PRN IV PUSH 12/04/17 02:45 (Glucagon Inj) 1 mg UNSCH PRN OTHER 12/04/17 02:45 (NovoLOG SUPPLEMENTAL SCALE) 1 ACHS SLIDING SCALE SQ 12/04/17 08:00 12/04/17 12:58 (Morphine Inj) 2 mg Q3H PRN IV PUSH 12/04/17 03:00 12/04/17 05:35 (Heparin Inj) 5,000 units Q8HR SQ 12/04/17 10:30 12/04/17 14:17 (Compazine Inj) 5 mg Q4H PRN IV PUSH 12/04/17 03:00 5/29/18 10:22 (Restoril) 15 mg HS PRN PO 12/04/17 09:45 Piperacillin Sod/ Tazobactam Sod 50 ml @ 100 mls/hr Q8H IV 12/04/17 14:00 12/04/17 14:17 (Lasix) 40 mg TuThSa@0900 PO 12/06/17 09:00 (Prinivil) 10 mg DAILY PO 12/04/17 11:15 12/04/17 12:58 (Renvela) 800 mg TID PO 12/04/17 13:00 12/04/17 13:52 (Sensipar) 60 mg SuTuThSa PO 12/04/17 18:00 (Sensipar) 120 mg MoWeFr PO 12/05/17 18:00 (Pravachol) 40 mg HS PO 12/04/17 21:00 (Reglan) 5 mg Q6H PRN PO 12/04/17 11:15 Family History Noncontributory Social History Denies smoking or alcohol Physical Exam Vital Signs Vital Signs Date Time Temp Pulse Resp B/P (MAP) Pulse Ox O2 Delivery O2 Flow Rate FiO2 12/04/17 10:55 97.6 63 20 153/70 (97) 98 12/04/17 08:02 98 21 12/04/17 07:02 98.0 64 16 142/64 (90) 98 12/04/17 06:11 21 12/04/17 05:40 18 12/04/17 04:06 98.4 68 17 135/63 (87) 97 12/04/17 03:20 18 12/04/17 01:42 73 16 193/80 (117) 99 12/04/17 01:30 12/04/17 00:01 71 18 178/74 (108) 100 Room Air 12/03/17 22:21 98 Room Air 12/03/17 21:47 98.7 74 20 226/87 (133) 99 Physical Exam GENERAL: Well-nourished, well-developed patient. SKIN: Warm and dry. HEAD: Normocephalic. EYES: No scleral icterus. No injection or drainage. NECK: Supple, trachea midline. No JVD or lymphadenopathy. CARDIOVASCULAR: Regular rate and rhythm without murmurs, gallops, or rubs. RESPIRATORY: Breath sounds equal bilaterally. No accessory muscle use. GASTROINTESTINAL: Abdomen soft, non-tender, nondistended. EXTREMITIES: No cyanosis, or edema. AV fistula right arm NEUROLOGICAL: Awake, alert, and oriented x 3. Non-focal. Laboratory Laboratory Tests Test 12/03/17 22:25 White Blood Count 10.1 Red Blood Count 4.28 Hemoglobin 12.3 Hematocrit 38.3 Mean Corpuscular Volume 89.5 Mean Corpuscular Hemoglobin 28.7 Mean Corpuscular Hemoglobin Concent 32.1 Red Cell Distribution Width 17.0 Platelet Count 200 Mean Platelet Volume 9.5 Neutrophils (%) (Auto) 73.4 Lymphocytes (%) (Auto) 15.3 Monocytes (%) (Auto) 5.5 Eosinophils (%) (Auto) 5.3 Basophils (%) (Auto) 0.5 Neutrophils # (Auto) 7.4 Lymphocytes # (Auto) 1.6 Monocytes # (Auto) 0.6 Eosinophils # (Auto) 0.5 Basophils # (Auto) 0.0 CBC Comment DIFF FINAL Differential Comment Prothrombin Time 10.6 Prothromb Time International Ratio 1.0 Activated Partial Thromboplast Time 27.2 Urine Color YELLOW Urine Turbidity CLOUDY Urine pH 7.0 Urine Specific [place] 1.013 Urine Protein 300 Urine Glucose (UA) 70 Urine Ketones 10 Urine Occult Blood MOD Urine Nitrite NEG Urine Bilirubin NEG Urine Urobilinogen LESS THAN 2.0 Urine Leukocyte Esterase LARGE Urine RBC 39 Urine WBC Urine WBC Clumps MANY Urine Squamous Epithelial Cells 3 Urine Bacteria MANY Urine Mucus MOD Microscopic Urinalysis Comment CULTURE INDICATED Blood Urea Nitrogen 36 Creatinine 4.20 Random Glucose 226 Total Protein 7.7 Albumin 3.5 Calcium Level 9.3 Alkaline Phosphatase 216 Aspartate Amino Transf (AST/SGOT) 20 Alanine Aminotransferase (ALT/SGPT) 22 Total Bilirubin 0.4 Sodium Level 137 Potassium Level 3.9 Chloride Level 100 Carbon Dioxide Level 25.2 Anion Gap 12 Estimat Glomerular Filtration Rate 13 Date/Time Source Procedure Growth Status 12/03/17 22:25 Urine Clean Catch Urine Culture - Preliminary Gram Negative Zaheer Resulted Result Diagram: 12/03/17222412/03/172224 Imaging Last Impressions Abdomen/Pelvis CT 12/03/172219 Signed Impressions: CONCLUSION: Abnormal gas collection within the bladder wall with a few gas marvel bles outside of the bladder and findings are mostly consistent with gangrenous cystitis. Findings were discussed with Dr Cerda at the time of this dictation a t 11:52 hours. Assessment and Plan Problem List: (1) ESRD (end stage renal disease) on dialysis ICD Codes: N18.6 - End stage renal disease; Z99.2 - Dependence on renal dialysis Plan: Patient will be scheduled for hemodialysis on Sunday, Sunday and Sunday Continue to monitor her progress ID is following Patient is on antibiotic (2) Cystitis ICD Codes: N30.90 - Cystitis, unspecified without hematuria Status: Acute Plan: Patient is on Zosyn earlier received ceftriaxone ID is following Urine culture showing gram-negative bacteria Kang catheter to decompress bladder (3) DM (diabetes mellitus) ICD Codes: E11.9 - DM (diabetes mellitus) Status: Acute Plan: Continue to monitor (4) Hypertension ICD Codes: I10 - Hypertension Status: Acute Plan: Monitor blood pressure Patricio Howell MD December 04, 2017 15:10
[2017-12-04] MEDS ORDERED: GELATIN 12 MM/7 MM FOAM TOP PRN (15:15)
[2017-12-04] MEDS ORDERED: ALBUMIN 25% INJ 100 ML IV PRN (15:15)
[2017-12-04] MEDS ORDERED: cloNIDine HCL 0.1 MG TAB PO PRN (15:15)
[2017-12-04] MEDS ORDERED: EPOETIN ALFA 4,000 UNITS/ML VIAL IV PUSH PRN (15:15)
[2017-12-04] MEDS ORDERED: ONDANSETRON ODT 4 MG TAB PO PRN (15:15)
[2017-12-04] MEDS ORDERED: HEPARIN SODIUM - IV 10,000 UNITS/10 ML VIAL IV FLUSH PRN (15:15)
[2017-12-04] MEDS ORDERED: MANNITOL 12.5 GM/50 ML VIAL IV PRN (15:15)
[2017-12-04] MEDS ORDERED: NITROGLYCERIN 0.4 MG SL 25 TABS/BTL SL PRN (15:15)
[2017-12-04] MEDS ORDERED: diphenhydrAMINE HCL 25 MG CAP PO PRN (15:15)
--- NOTE | 2017-12-04 16:59 | PD.CONS ---
[facility] Service Urology Consult Requested By Primary Care Physician Unknown Diagnosis: (1) Cystitis ICD Code: N30.90 - Cystitis, unspecified without hematuria History of Present Illness 72 yo AA female h/o DM, ESRD on HD x 4 years presented to [place] ER with acute onset of suprapubic pain, 10/10, nausea, dysuria. CT A/P without contrast was performed which showed air diffusely in her bladder wall, consistent with Emphysematous Cystitis. She was admitted and Urology was consulted. A barreto catheter was inserted for over 400 ml. Currently, her pain is improved. Denies flank pain, fevers, chills, nausea. Denies h/o kidney stones. She gets an occasional UTI. Review of Systems Gastrointestinal: COMPLAINS OF: Abdominal pain Except as stated in HPI: all other systems reviewed are Neg Past Family Social History Past Medical History DM, ESRD, Hyperlipidemia, HTN, COPD, CAD Past Surgical History Hysterectomy, cardiac stents, Tonsillectomy Reported Medications Lisinopril, Clonidine Allergies: Coded Allergies: acetaminophen (Unverified Allergy, Severe, ITCH, 12/03/17) ketorolac (Unverified Allergy, Severe, HIVES, 12/03/17) oxycodone (Unverified Allergy, Severe, ITCH, 12/03/17) *MDRO Multi-Drug Resistant Organism (Verified Allergy, Unknown, 12/03/17) MRSA 03/2008 SPUTUM Family History Denies urolithiasis of Gu malignancies. Social History Denies alcohol, illicit drugs; h/o tobacco use. Physical Exam Vital Signs Date Time Temp Pulse Resp B/P (MAP) Pulse Ox O2 Delivery O2 Flow Rate FiO2 12/04/17 15:35 97.5 62 16 154/68 (96) 98 12/04/17 10:55 97.6 63 20 153/70 (97) 98 12/04/17 08:02 98 21 12/04/17 07:02 98.0 64 16 142/64 (90) 98 12/04/17 06:11 21 12/04/17 05:40 18 12/04/17 04:06 98.4 68 17 135/63 (87) 97 12/04/17 03:20 18 12/04/17 01:42 73 16 193/80 (117) 99 12/04/17 01:30 12/04/17 00:01 71 18 178/74 (108) 100 Room Air 12/03/17 22:21 98 Room Air 12/03/17 21:47 98.7 74 20 226/87 (133) 99 Physical Exam GENERAL: This is a well-nourished, well-developed patient, in no apparent distress. SKIN: No rashes, ecchymoses or lesions. Cool and dry. HEAD: Atraumatic. Normocephalic. No temporal or scalp tenderness. EYES: Pupils equal round and reactive. Extraocular motions intact. No scleral icterus. No injection or drainage. ENT: Nose without bleeding, purulent drainage or septal hematoma. Throat without erythema, tonsillar hypertrophy or exudate. Uvula midline. Airway patent. NECK: Trachea midline. No JVD or lymphadenopathy. Supple, nontender, no meningeal signs. CARDIOVASCULAR: Regular rate and rhythm without murmurs, gallops, or rubs. RESPIRATORY: Clear to auscultation. Breath sounds equal bilaterally. No wheezes , rales, or rhonchi. GASTROINTESTINAL: Abdomen soft, non-tender, nondistended. No hepato-splenomegaly , or palpable masses. No guarding. GENITOURINARY: No CVA tenderness. Barreto draining yellow urine MUSCULOSKELETAL: Extremities without clubbing, cyanosis, or edema. No joint tenderness, effusion, or edema noted. No calf tenderness. Negative Homans sign bilaterally. NEUROLOGICAL: Awake and alert. Cranial nerves II through XII intact. Motor and sensory grossly within normal limits. Five out of 5 muscle strength in all muscle groups. Normal speech. Lab results reviewed: Yes Laboratory Tests Test 12/03/17 22:25 White Blood Count 10.1 Red Blood Count 4.28 Hemoglobin 12.3 Hematocrit 38.3 Mean Corpuscular Volume 89.5 Mean Corpuscular Hemoglobin 28.7 Mean Corpuscular Hemoglobin Concent 32.1 Red Cell Distribution Width 17.0 Platelet Count 200 Mean Platelet Volume 9.5 Neutrophils (%) (Auto) 73.4 Lymphocytes (%) (Auto) 15.3 Monocytes (%) (Auto) 5.5 Eosinophils (%) (Auto) 5.3 Basophils (%) (Auto) 0.5 Neutrophils # (Auto) 7.4 Lymphocytes # (Auto) 1.6 Monocytes # (Auto) 0.6 Eosinophils # (Auto) 0.5 Basophils # (Auto) 0.0 CBC Comment DIFF FINAL Differential Comment Prothrombin Time 10.6 Prothromb Time International Ratio 1.0 Activated Partial Thromboplast Time 27.2 Urine Color YELLOW Urine Turbidity CLOUDY Urine pH 7.0 Urine Specific [place] 1.013 Urine Protein 300 Urine Glucose (UA) 70 Urine Ketones 10 Urine Occult Blood MOD Urine Nitrite NEG Urine Bilirubin NEG Urine Urobilinogen LESS THAN 2.0 Urine Leukocyte Esterase LARGE Urine RBC 39 Urine WBC Urine WBC Clumps MANY Urine Squamous Epithelial Cells 3 Urine Bacteria MANY Urine Mucus MOD Microscopic Urinalysis Comment CULTURE INDICATED Blood Urea Nitrogen 36 Creatinine 4.20 Random Glucose 226 Total Protein 7.7 Albumin 3.5 Calcium Level 9.3 Alkaline Phosphatase 216 Aspartate Amino Transf (AST/SGOT) 20 Alanine Aminotransferase (ALT/SGPT) 22 Total Bilirubin 0.4 Sodium Level 137 Potassium Level 3.9 Chloride Level 100 Carbon Dioxide Level 25.2 Anion Gap 12 Estimat Glomerular Filtration Rate 13 Date/Time Source Procedure Growth Status 12/03/17 22:25 Urine Clean Catch Urine Culture - Preliminary Gram Negative Zaheer Resulted Result Diagram: 12/03/17222412/03/172224 Personally reviewed images: Yes (air diffusely in bladder wall; no hydronephrosis or kidney stones) Imaging Last Impressions Abdomen/Pelvis CT 12/03/172219 Signed Impressions: CONCLUSION: Abnormal gas collection within the bladder wall with a few gas marvel bles outside of the bladder and findings are mostly consistent with gangrenous cystitis. Findings were discussed with Dr Cerda at the time of this dictation a t 11:52 hours. Assessment and Plan Assessment and Plan 72 yo female h/o DM, ESRD on HD with Emphysematous Cystitis -Recommend antibiotics, barreto catheter x 2 weeks. Await culture results -Repeat CT in 2 weeks. -F/U as outpatient. Ervin Nicole MD December 04, 2017 16:59
[2017-12-04] MEDS: CINACALCET HYDROCHLORIDE 30 MG TAB PO SCH (18:06)
[2017-12-04] MEDS: PRAVASTATIN SOD 40 MG TAB PO SCH (22:01)
[2017-12-05 03:30] VITALS: BP 117/57; PULSE 76; RESP 16; TEMP 98.7; O2SAT 99
[2017-12-05] MEDS: PIPERACIL-TAZO 2.25 GM PREMIX 50 ML IV SCH ×3 (05:20→18:42)
[2017-12-05] MEDS: HEPARIN SODIUM - SQ 10,000 UNITS/ML VIAL SQ SCH ×3 (05:21→21:53)
[2017-12-05] MEDS ORDERED: PIPERACIL-TAZO 3.375 GM PREMIX 50 ML IV SCH (06:00)
[2017-12-05 07:22] VITALS: BP 147/69; PULSE 67; RESP 18; TEMP 96.2; O2SAT 99
[2017-12-05] MEDS: SEVELAMER CARBONATE 800 MG TAB PO SCH ×3 (09:14→18:41)
[2017-12-05] MEDS: LISINOPRIL 10 MG TAB PO SCH (09:14)
[2017-12-05] MEDS: SODIUM CHLORIDE 0.9% FLUSH 10 ML FLUSH IV FLUSH SCH ×2 (09:14→21:53)
[2017-12-05] MEDS: ACETAMINOPHEN/HYDROcodone 325 MG/5 MG TAB PO PRN (09:14)
[2017-12-05] MEDS: INSULIN ASPART SUPPLEMENTAL SCALE SQ SCH ×4 (09:15→22:00)
--- NOTE | 2017-12-05 09:57 | HHI.PR ---
Subjective Remarks Follow up for gangrenous cystitis. The patient reports continued improvement of lower abdominal/suprapubic pain, although still uncomfortable, worse with palpation. Denies nausea/vomiting. No documented fever, but patient did feel slightly warm again overnight. She is tolerating oral intake. Barreto with pink blood tinged urine, no noticeable clots. She has no other medical complaints at this time. Objective Vitals Vital Signs Date Time Temp Pulse Resp B/P (MAP) Pulse Ox O2 Delivery O2 Flow Rate FiO2 12/05/17 07:22 96.2 67 18 147/69 (95) 99 12/05/17 03:30 98.7 76 16 117/57 (77) 99 12/05/17 03:03 21 12/04/17 23:54 98.2 75 16 146/67 (93) 97 12/04/17 19:48 98.1 71 16 154/70 (98) 100 12/04/17 15:35 97.5 62 16 154/68 (96) 98 12/04/17 10:55 97.6 63 20 153/70 (97) 98 I/O 12/04/17 12/04/17 12/04/17 12/05/17 12/05/17 12/05/17 07:00 15:00 23:00 07:00 15:00 23:00 Intake Total 150 ml 50 ml 50 ml 480 ml Output Total 425 ml 600 ml Balance 150 ml 50 ml -375 ml -120 ml Intake Oral 480 ml IV Total 150 ml 50 ml 50 ml Output Urine Total 425 ml 600 ml Result Diagram: 12/03/17222412/03/172224 Imaging Last Impressions Abdomen/Pelvis CT 12/03/172219 Signed Impressions: CONCLUSION: Abnormal gas collection within the bladder wall with a few gas marvel bles outside of the bladder and findings are mostly consistent with gangrenous cystitis. Findings were discussed with Dr Cerda at the time of this dictation a t 11:52 hours. Objective Remarks GENERAL: Well-nourished, well-developed pleasant elderly female patient in [facility]. SKIN: Warm and dry. No rash. HEENT: Normocephalic. Atraumatic. Pupils equal and round. Mucous membranes pink and moist. CARDIOVASCULAR: Regular rate and rhythm. No murmur appreciated. RESPIRATORY: No accessory muscle use. Clear to auscultation. Breath sounds equal bilaterally. GASTROINTESTINAL: Abdomen soft, non-tender, nondistended. Normoactive bowel sounds x4. GENITOURINARY: Barreto in place with blood tinged urine, no clots. MUSCULOSKELETAL: No obvious deformities. Trace bilateral pedal edema. RUE AV fistula with +thrill/bruit. NEUROLOGICAL: Awake and alert. No obvious cranial nerve deficits. Motor grossly within normal limits. Moving all extremities spontaneously. Normal speech. PSYCHIATRIC: Appropriate mood and affect; insight and judgment normal. Medications and IVs Current Medications Medications (Trade) Dose Ordered Sig/Lizbeth Route Start Time Stop Time Status Last Admin (NS Flush) 2 ml UNSCH PRN IV FLUSH 12/04/17 00:30 (NS Flush) 2 ml BID IV FLUSH 12/04/17 09:00 12/05/17 09:14 (Tylenol) 650 mg Q4H PRN PO 12/04/17 00:30 12/04/17 09:35 (Narcan Inj) 0.4 mg UNSCH PRN IV PUSH 12/04/17 00:30 (Milk Of Magnesia Liq) 30 ml Q12H PRN PO 12/04/17 00:30 (Senokot) 17.2 mg Q12H PRN PO 12/04/17 00:30 (Dulcolax Supp) 10 mg DAILY PRN RECTAL 12/04/17 00:30 (Lactulose Liq) 30 ml DAILY PRN PO 12/04/17 00:30 ([place] 5-325 Mg) 1 tab Q4H PRN PO 12/04/17 02:00 12/05/17 09:14 (D50w (Vial) Inj) 50 ml UNSCH PRN IV PUSH 12/04/17 02:45 (Glucagon Inj) 1 mg UNSCH PRN OTHER 12/04/17 02:45 (NovoLOG SUPPLEMENTAL SCALE) 1 ACHS SLIDING SCALE SQ 12/04/17 08:00 12/05/17 13:00 (Morphine Inj) 2 mg Q3H PRN IV PUSH 12/04/17 03:00 12/04/17 05:35 (Heparin Inj) 5,000 units Q8HR SQ 12/04/17 10:30 12/05/17 05:21 (Compazine Inj) 5 mg Q4H PRN IV PUSH 12/04/17 03:00 12/04/17 10:22 (Restoril) 15 mg HS PRN PO 12/04/17 09:45 Piperacillin Sod/ Tazobactam Sod 50 ml @ 100 mls/hr Q8H IV 12/04/17 14:00 12/05/17 05:20 (Lasix) 40 mg TuThSa@0900 PO 12/06/17 09:00 (Prinivil) 10 mg DAILY PO 12/04/17 11:15 12/05/17 09:14 (Renvela) 800 mg TID PO 12/04/17 13:00 12/05/17 09:14 (Sensipar) 60 mg SuTuThSa PO 12/04/17 18:00 12/04/17 18:06 (Sensipar) 120 mg MoWeFr PO 12/05/17 18:00 (Pravachol) 40 mg HS PO 12/04/17 21:00 12/04/17 22:01 (Reglan) 5 mg Q6H PRN PO 12/04/17 11:15 Sodium Chloride 1,000 ml @ 0 mls/hr Q0M PRN OTHER 12/04/17 15:10 (Heparin Inj) 8,000 units UNSCH PRN IV FLUSH 12/04/17 15:15 Sodium Chloride 1,000 ml @ 200 mls/hr Q5H PRN IV 12/04/17 15:10 Sodium Chloride 1,000 ml @ 0 mls/hr Q0M PRN OTHER 12/04/17 15:10 (Mannitol Inj) 12.5 gm UNSCH PRN IV 12/04/17 15:15 Albumin Human 100 ml @ 60 mls/hr UNSCH PRN IV 12/04/17 15:15 (NS Flush) 5 ml UNSCH PRN IV FLUSH 12/04/17 15:15 (Zofran Odt) 4 mg UNSCH PRN PO 12/04/17 15:15 (Benadryl) 25 mg UNSCH PRN PO 12/04/17 15:15 (Nitrostat Sl) 0.4 mg UNSCH PRN SL 12/04/17 15:15 (Catapres) 0.1 mg UNSCH PRN PO 12/04/17 15:15 (Epogen Inj) 4,000 units UNSCH PRN IV PUSH 12/04/17 15:15 (Gelfoam 12 Mm/7 Mm Top) 1 foam UNSCH PRN TOP 12/04/17 15:15 A/P Problem List: (1) Cystitis ICD Code: N30.90 - Cystitis, unspecified without hematuria Status: Acute Assessment and Plan 72 y/o female with a history of ESRD on HD M-W-F, c. difficile, diabetes mellitus, CAD s/p stenting, hyperlipidemia, and COPD who presents to the ED 12/03 complaining of severe lower abdominal pain, dysuria, and foul-smelling urine. An abdomen/pelvis CT performed in the emergency room showed findings consistent with gangrenous cystitis and [facility]. Acute Gangrenous Cystitis: acute, +dysuria, suprapubic pain, foul smelling urine. WBC 10K, afebrile. However patient reported fever of 102 on 12/02. -CT abd/pelvis reviewed, shows abnormal gas collection within the bladder wall with a few gas blebs outside of the bladder, consistent with gangrenous cystitis -Continue antibiotics with IV Zosyn 3.375 mg IV q6h -Continue pain control with [place] 5/325 mg p.o. q4h prn with Morphine 2 mg IV q3h PRN breakthrough pain -Urology consulted, recommended continue antibiotics, barreto catheter [id number] , repeat CT in 2weeks, outpatient f/up -await urine culture results and adjust treatment if needed -Consult infectious disease, appreciate assistance ESRD on HD: chronic, on HD MWF -consult Dr. Eason, nephrology - assistance appreciated -renal diet Abdominal pain/N/V/diarrhea -ordered stool studies/Cdiff however patient with no further diarrhea -Prochlorperazine 5 mg IV q4h PRN nausea/vomiting -Symptoms improved with initiation of antibiotics for cystitis as above, tolerating oral intake Type 2 Diabetes Mellitus -Monitor Accu-Cheks and cover with low-dose NovoLog sliding scale -Hypoglycemia protocol -Monitor trends and blood glucose readings and adjust treatments as indicated Insomnia: patient reports chronic insomnia and worse while in hospital, requesting medication to help her sleep -give trial Restoril 15mg hs prn insomnia while in hospital DVT prophylaxis- heparin 5000 units subq q8h Discharge Planning Discharge pending urine culture and oral antibiotic recommendations by ID. Hopefully discharge tomorrow 12/06. Kecia Vázquez PA-C December 05, 2017 9:57 am
[2017-12-05 11:13] VITALS: BP 133/58; PULSE 69; RESP 18; TEMP 97.8; O2SAT 99
--- NOTE | 2017-12-05 11:52 | HHI.IDPN ---
Subjective Subjective Remarks doing better, but still c/o prominent lower abd pain no fever nl WBC Antibiotics zosyn Past Medical History DM ESRD/HD M-W-F Allergies: Coded Allergies: acetaminophen (Unverified Allergy, Severe, ITCH, 12/03/17) ketorolac (Unverified Allergy, Severe, HIVES, 12/03/17) oxycodone (Unverified Allergy, Severe, ITCH, 12/03/17) *MDRO Multi-Drug Resistant Organism (Verified Allergy, Unknown, 12/03/17) MRSA 03/2008 SPUTUM Objective . Vital Signs Date Time Temp Pulse Resp B/P (MAP) Pulse Ox O2 Delivery O2 Flow Rate FiO2 12/05/17 11:13 97.8 69 18 133/58 (83) 99 12/05/17 07:22 96.2 67 18 147/69 (95) 99 12/05/17 03:30 98.7 76 16 117/57 (77) 99 12/05/17 03:03 21 12/04/17 23:54 98.2 75 16 146/67 (93) 97 12/04/17 19:48 98.1 71 16 154/70 (98) 100 12/04/17 15:35 97.5 62 16 154/68 (96) 98 12/05/17 12/05/17 12/06/17 14:59 22:59 06:59 # Bowel Movements 0 . Laboratory Tests Test 12/03/17 22:25 White Blood Count 10.1 TH/MM3 Red Blood Count 4.28 MIL/MM3 Hemoglobin 12.3 GM/DL Hematocrit 38.3 % Mean Corpuscular Volume 89.5 FL Mean Corpuscular Hemoglobin 28.7 PG Mean Corpuscular Hemoglobin Concent 32.1 % Red Cell Distribution Width 17.0 % Platelet Count 200 TH/MM3 Mean Platelet Volume 9.5 FL Neutrophils (%) (Auto) 73.4 % Lymphocytes (%) (Auto) 15.3 % Monocytes (%) (Auto) 5.5 % Eosinophils (%) (Auto) 5.3 % Basophils (%) (Auto) 0.5 % Neutrophils # (Auto) 7.4 TH/MM3 Lymphocytes # (Auto) 1.6 TH/MM3 Monocytes # (Auto) 0.6 TH/MM3 Eosinophils # (Auto) 0.5 TH/MM3 Basophils # (Auto) 0.0 TH/MM3 CBC Comment DIFF FINAL Differential Comment Laboratory Tests Test 12/03/17 22:25 Blood Urea Nitrogen 36 MG/DL Creatinine 4.20 MG/DL Random Glucose 226 MG/DL Total Protein 7.7 GM/DL Albumin 3.5 GM/DL Calcium Level 9.3 MG/DL Alkaline Phosphatase 216 U/L Aspartate Amino Transf (AST/SGOT) 20 U/L Alanine Aminotransferase (ALT/SGPT) 22 U/L Total Bilirubin 0.4 MG/DL Sodium Level 137 MEQ/L Potassium Level 3.9 MEQ/L Chloride Level 100 MEQ/L Carbon Dioxide Level 25.2 MEQ/L Anion Gap 12 MEQ/L Estimat Glomerular Filtration Rate 13 ML/MIN Microbiology Date/Time Source Procedure Growth Status 12/03/17 22:25 Urine Clean Catch Urine Culture - Preliminary Gram Negative Zaheer Resulted Imaging Last Impressions Abdomen/Pelvis CT 12/03/172219 Signed Impressions: CONCLUSION: Abnormal gas collection within the bladder wall with a few gas marvel bles outside of the bladder and findings are mostly consistent with gangrenous cystitis. Findings were discussed with Dr Cerda at the time of this dictation a t 11:52 hours. Physical Exam CONSTITUTIONAL/GENERAL: This is an adequately nourished patient, in no apparent distress. TUBES/LINES/DRAINS: RUE AVfitula i place with excellent thrill no e/o infx SKIN: No jaundice, rashes, or lesions. Skin temperature appropriate. Not diaphoretic. CARDIOVASCULAR: Regular rate and rhythm without murmurs, gallops, or rubs. No JVD. Peripheral pulses diminished on bl feet RESPIRATORY/CHEST: Symmetric, unlabored respirations. Clear to auscultation. Breath sounds equal bilaterally. No wheezes, rales, or rhonchi. GASTROINTESTINAL: Abdomen soft, non-tender, nondistended. No hepato-splenomegaly , or palpable masses. No guarding. Bowel sounds present. GENITOURINARY: Without palpable bladder distension. Very tender to palpation in suprapubic area and lower abdomen Barreto in place with blood tinged dark angelica urine MUSCULOSKELETAL: Extremities without clubbing, cyanosis, or edema. NEUROLOGICAL: Awake and alert. Motor and sensory grossly within normal limits. Follows commands. Clear speech . Moves all extremities. PSYCHIATRIC: No obvious anxiety/depression. no apparent hallucinations or other psychotic thought process. Assessment & Plan Remarks DM ESRD with oliguria Emphasematous cystytis - quite distended bladder on scan with residfula urine Complicated UTI, GNB PLAN; cont zosyn barreto per urology rec's fu clx urine - anticipate transition to oral abx if isolate S o/w will paln for IV - if no improvement in pain will repeat CT dw Dr Bonnie Bennett,Morena Bullock MD December 05, 2017 11:52
--- NOTE | 2017-12-05 14:46 | HHI.NPPN ---
Subjective History of Present Illness 72 year old female with ESRD Cystitis Objective Data Data 12/05/17 12/06/17 19:00 07:00 # Bowel Movements 0 Vital Signs Date Time Temp Pulse Resp B/P (MAP) Pulse Ox O2 Delivery O2 Flow Rate FiO2 12/05/17 11:13 97.8 69 18 133/58 (83) 99 12/05/17 07:22 96.2 67 18 147/69 (95) 99 12/05/17 03:30 98.7 76 16 117/57 (77) 99 12/05/17 03:03 21 12/04/17 23:54 98.2 75 16 146/67 (93) 97 12/04/17 19:48 98.1 71 16 154/70 (98) 100 12/04/17 15:35 97.5 62 16 154/68 (96) 98 -: 12/03/17 2225 12/03/17 2225 Physical Exam General Appearance: Well Developed Neck Neck Exam: Neck Supple Pulmonary Resp Exam: Clear Bilaterally, Breath Sounds Equal Cardiology CV Exam: Regular, Normal Sinus Rhythm Gastrointestinal/Abdomen GI Exam: Soft, Non-Tender, Bowel Sounds Present Extremeties Extremities Exam: No Edema Assessment/Plan Problem List: (1) ESRD (end stage renal disease) on dialysis ICD Codes: N18.6 - End stage renal disease; Z99.2 - Dependence on renal dialysis Plan: Patient will be scheduled for hemodialysis on Sunday, Sunday and Sunday Continue to monitor her progress HD progress noted UF 3 L tolerating it well (2) Cystitis ICD Codes: N30.90 - Cystitis, unspecified without hematuria Status: Acute Plan: Patient is on Zosyn earlier received ceftriaxone ID is following Urine culture showing gram-negative bacteria Kang catheter to decompress bladder (3) DM (diabetes mellitus) ICD Codes: E11.9 - DM (diabetes mellitus) Status: Acute Plan: Continue to monitor (4) Hypertension ICD Codes: I10 - Hypertension Status: Acute Plan: Monitor blood pressure Patricio Howell MD December 05, 2017 14:46
[2017-12-05 17:36] VITALS: BP 133/62; PULSE 85; RESP 18; TEMP 98.1; O2SAT 97
[2017-12-05] MEDS ORDERED: CINACALCET HYDROCHLORIDE 30 MG TAB PO SCH (18:00)
[2017-12-05 19:49] VITALS: O2SAT 98
[2017-12-05 21:01] VITALS: BP 145/65; PULSE 90; RESP 16; TEMP 99.7; O2SAT 98
[2017-12-05] MEDS: PRAVASTATIN SOD 40 MG TAB PO SCH (21:53)
[2017-12-06] VITALS: BP 106/55; PULSE 87; RESP 16; TEMP 99.6; O2SAT 96
[2017-12-06] MEDS: PIPERACIL-TAZO 2.25 GM PREMIX 50 ML IV SCH ×2 (02:00→10:00)
[2017-12-06] MEDS: ACETAMINOPHEN 325 MG TAB PO PRN (02:42)
[2017-12-06 04:00] VITALS: BP 126/59; PULSE 75; RESP 16; TEMP 99.6; O2SAT 96
[2017-12-06] MEDS: HEPARIN SODIUM - SQ 10,000 UNITS/ML VIAL SQ SCH ×2 (05:30→14:02)
[2017-12-06 07:26] VITALS: BP 123/56; PULSE 76; RESP 18; TEMP 98.4; O2SAT 98
[2017-12-06] MEDS: INSULIN ASPART SUPPLEMENTAL SCALE SQ SCH ×3 (08:24→18:37)
[2017-12-06] MEDS ORDERED: FUROSEMIDE 40 MG TAB PO SCH (09:00)
--- NOTE | 2017-12-06 09:26 | HHI.PR ---
Subjective Remarks Follow up for gangrenous cystitis. The patient reports feeling better again today. She wants to go home. Denies fevers/chills/sweats. Suprapubic pain improved, has some mild discomfort with palpation. Barreto in place with pink blood tinged urine. She is tolerating oral intake. She has no other medical complaints at this time. Objective Vitals Vital Signs Date Time Temp Pulse Resp B/P (MAP) Pulse Ox O2 Delivery O2 Flow Rate FiO2 12/06/17 07:26 98.4 76 18 123/56 (78) 98 12/06/17 04:00 99.6 75 16 126/59 (81) 96 12/06/17 04:00 18 12/06/17 00:00 99.6 87 16 106/55 (72) 96 12/05/17 21:01 99.7 90 16 145/65 (91) 98 12/05/17 19:49 98 12/05/17 17:36 98.1 85 18 133/62 (85) 97 12/05/17 11:13 97.8 69 18 133/58 (83) 99 I/O 12/05/17 12/05/17 12/05/17 12/06/17 12/06/17 12/06/17 07:00 15:00 23:00 07:00 15:00 23:00 Intake Total 480 ml 50 ml Output Total 600 ml 3550 ml 100 ml Balance -120 ml -3500 ml -100 ml Intake Oral 480 ml IV Total 50 ml Output Urine Total 600 ml 550 ml 100 ml Hemodialysis 3000 ml # Bowel Movements 0 0 Result Diagram: 12/03/17222412/03/172224 Imaging Last Impressions Abdomen/Pelvis CT 12/03/172219 Signed Impressions: CONCLUSION: Abnormal gas collection within the bladder wall with a few gas marvel bles outside of the bladder and findings are mostly consistent with gangrenous cystitis. Findings were discussed with Dr Cerda at the time of this dictation a t 11:52 hours. Objective Remarks GENERAL: Well-nourished, well-developed pleasant elderly female patient in [facility]. SKIN: Warm and dry. No rash. HEENT: Normocephalic. Atraumatic. Pupils equal and round. Mucous membranes pink and moist. CARDIOVASCULAR: Regular rate and rhythm. No murmur appreciated. RESPIRATORY: No accessory muscle use. Clear to auscultation. Breath sounds equal bilaterally. GASTROINTESTINAL: Abdomen soft, non-tender, nondistended. Normoactive bowel sounds x4. GENITOURINARY: Barreto in place with pink blood tinged urine, no clots. MUSCULOSKELETAL: No obvious deformities. Trace bilateral pedal edema. RUE AV fistula with +thrill/bruit. NEUROLOGICAL: Awake and alert. No obvious cranial nerve deficits. Motor grossly within normal limits. Moving all extremities spontaneously. Normal speech. PSYCHIATRIC: Appropriate mood and affect; insight and judgment normal. Medications and IVs Current Medications Medications (Trade) Dose Ordered Sig/Lizbeth Route Start Time Stop Time Status Last Admin (NS Flush) 2 ml UNSCH PRN IV FLUSH 12/04/17 00:30 (NS Flush) 2 ml BID IV FLUSH 12/04/17 09:00 12/05/17 21:53 (Tylenol) 650 mg Q4H PRN PO 12/04/17 00:30 12/06/17 02:42 (Narcan Inj) 0.4 mg UNSCH PRN IV PUSH 12/04/17 00:30 (Milk Of Magnesia Liq) 30 ml Q12H PRN PO 12/04/17 00:30 (Senokot) 17.2 mg Q12H PRN PO 12/04/17 00:30 (Dulcolax Supp) 10 mg DAILY PRN RECTAL 12/04/17 00:30 (Lactulose Liq) 30 ml DAILY PRN PO 12/04/17 00:30 (Vilas 5-325 Mg) 1 tab Q4H PRN PO 12/04/17 02:00 12/05/17 09:14 (D50w (Vial) Inj) 50 ml UNSCH PRN IV PUSH 12/04/17 02:45 (Glucagon Inj) 1 mg UNSCH PRN OTHER 12/04/17 02:45 (NovoLOG SUPPLEMENTAL SCALE) 1 ACHS SLIDING SCALE SQ 12/04/17 08:00 12/05/17 22:00 (Morphine Inj) 2 mg Q3H PRN IV PUSH 12/04/17 03:00 12/04/17 05:35 (Heparin Inj) 5,000 units Q8HR SQ 12/04/17 10:30 12/06/17 05:30 (Compazine Inj) 5 mg Q4H PRN IV PUSH 12/04/17 03:00 12/04/17 10:22 (Restoril) 15 mg HS PRN PO 12/04/17 09:45 (Lasix) 40 mg TuThSa@0900 PO 12/06/17 09:00 (Prinivil) 10 mg DAILY PO 12/04/17 11:15 12/05/17 09:14 (Renvela) 800 mg TID PO 12/04/17 13:00 12/05/17 18:41 (Sensipar) 60 mg SuTuThSa PO 12/04/17 18:00 12/04/17 18:06 (Sensipar) 120 mg MoWeFr PO 12/05/17 18:00 12/05/17 18:42 (Pravachol) 40 mg HS PO 12/04/17 21:00 12/05/17 21:53 (Reglan) 5 mg Q6H PRN PO 12/04/17 11:15 Sodium Chloride 1,000 ml @ 0 mls/hr Q0M PRN OTHER 12/04/17 15:10 (Heparin Inj) 8,000 units UNSCH PRN IV FLUSH 12/04/17 15:15 Sodium Chloride 1,000 ml @ 200 mls/hr Q5H PRN IV 12/04/17 15:10 Sodium Chloride 1,000 ml @ 0 mls/hr Q0M PRN OTHER 12/04/17 15:10 (Mannitol Inj) 12.5 gm UNSCH PRN IV 12/04/17 15:15 Albumin Human 100 ml @ 60 mls/hr UNSCH PRN IV 12/04/17 15:15 (NS Flush) 5 ml UNSCH PRN IV FLUSH 12/04/17 15:15 (Zofran Odt) 4 mg UNSCH PRN PO 12/04/17 15:15 (Benadryl) 25 mg UNSCH PRN PO 12/04/17 15:15 (Nitrostat Sl) 0.4 mg UNSCH PRN SL 12/04/17 15:15 (Catapres) 0.1 mg UNSCH PRN PO 12/04/17 15:15 (Epogen Inj) 4,000 units UNSCH PRN IV PUSH 12/04/17 15:15 12/05/17 16:47 (Gelfoam 12 Mm/7 Mm Top) 1 foam UNSCH PRN TOP 12/04/17 15:15 Piperacillin Sod/ Tazobactam Sod 50 ml @ 100 mls/hr Q8H IV 12/05/17 18:00 12/06/17 02:00 A/P Problem List: (1) Cystitis ICD Code: N30.90 - Cystitis, unspecified without hematuria Status: Acute Assessment and Plan 72 y/o female with a history of ESRD on HD M-W-, c. difficile, diabetes mellitus, CAD s/p stenting, hyperlipidemia, and COPD who presents to the ED 12/03 complaining of severe lower abdominal pain, dysuria, and foul-smelling urine. An abdomen/pelvis CT performed in the emergency room showed findings consistent with gangrenous cystitis and [facility] Acute Gangrenous Cystitis: acute, +dysuria, suprapubic pain, foul smelling urine. WBC 10K, afebrile. However patient reported fever of 102 on 12/02. -CT abd/pelvis reviewed, shows abnormal gas collection within the bladder wall with a few gas blebs outside of the bladder, consistent with gangrenous cystitis -Continue antibiotics with IV Zosyn 3.375 mg IV q6h -Continue pain control with Vilas 5/325 mg p.o. q4h prn with Morphine 2 mg IV q3h PRN breakthrough pain -Urology consulted, recommended continue antibiotics, barreto catheter [id number] , repeat CT in 2weeks, outpatient f/up -Urine culture with E.Coli, multiple resistances, susceptible to Zosyn -Consult infectious disease, await recommendations on oral antibiotics prior to discharge ESRD on HD: chronic, on HD MWF -consult Dr. Eason, nephrology - assistance appreciated -renal diet Abdominal pain/N/V/diarrhea -ordered stool studies/Cdiff however patient with no further diarrhea -Prochlorperazine 5 mg IV q4h PRN nausea/vomiting -Symptoms improved with initiation of antibiotics for cystitis as above, tolerating oral intake Type 2 Diabetes Mellitus -Monitor Accu-Cheks and cover with low-dose NovoLog sliding scale -Hypoglycemia protocol -Monitor trends and blood glucose readings and adjust treatments as indicated Insomnia: patient reports chronic insomnia and worse while in hospital, requesting medication to help her sleep -give trial Restoril 15mg hs prn insomnia while in hospital DVT prophylaxis- heparin 5000 units subq q8h Discharge Planning Discharge pending oral antibiotic recommendations by ID. Hopefully discharge today if cleared by ID. Kecia Vázquez PA-C December 06, 2017 09:26
--- NOTE | 2017-12-06 09:51 | HHI.PR ---
Addendum to Inpatient Note Additional Information URINE CULTURE Preliminary 12/06/17-0836 >100,000 CFU/ML ESCHERICHIA COLI ESC COLI M.I.C. RX --------- --- AMPICILLIN >16 R AMOXICILLIN/K CLAVULANATE >16/8 R PIPERCILLIN/TAZOBACTAM <16 S AMPICILLIN/SULBACTAM >16/8 R CEFAZOLIN >16 R CEFUROXIME >16 R CEFTRIAXONE 32 R CEFTAZIDIME 16 I CEFEPIME <2 S AZTREONAM 8 S ERTAPENEM <0.5 S IMIPENEM <1 S GENTAMICIN <4 S TOBRAMYCIN <4 S TETRACYCLINE >8 R TRIMETH/SULFA >2/38 R TRIMETHOPRIM >8 R NITROFURANTOIN <32 S CIPROFLOXACIN >2 R No oral oprions Not ESBL will have to se IV will cont zoysn in-pt will use Ertapen as o/p Morena Bennett MD December 06, 2017 09:51
--- NOTE | 2017-12-06 09:52 | HHI.FF ---
Infusion Therapy Location of Infusion Therapy: Home Health Care IV Infusion Order Patient Information Patient Weight 72.73 kg Diagnosis: Coded Allergies: acetaminophen (Unverified Allergy, Severe, ITCH, 12/03/17) ketorolac (Unverified Allergy, Severe, HIVES, 12/03/17) oxycodone (Unverified Allergy, Severe, ITCH, 12/03/17) *MDRO Multi-Drug Resistant Organism (Verified Allergy, Unknown, 12/03/17) MRSA 03/2008 SPUTUM Administer Medication Ertapenem 500 mg IV q 24 hours Start Treatment: December 06, 2017 Stop Treatment: Dec 16, 2017 Additional Information Additional Instructions [x] Peripheral flush and dressing changes per protocol [x] Implanted port and central transfer and line up worker: * Implanted port: 10 ml Normal Saline followed by 5 ml Heparin 100 units/ml Heparin flush after each use and monthly to maintain. [] May leave port accessed during therapy. [] May leave peripheral site accessed for duration of therapy. [x] If patient has SOB or respiratory distress, check oxygen saturation. If less than 90% or clinical signs of respiratory distress, administer oxygen at 2 L/min. via nasal cannula and notify physician. [x] Anaphylaxis/Reaction orders: * Stop infusion. * Keep IV line open with saline flush. * Notify physician. * Monitor vital signs every 15 minutes until symptoms resolve. * Check Oxygen saturation; Oxygen at 2 L/min. via nasal cannula if less than 90% or clinical signs of respiratory distress. * Administer diphenhydramine (Benadryl) 25 mg IV STAT, (unless patient has received as pre-med). May repeat once, if necessary. * Solu-Cortef 250 mg IVP over 30-60 seconds, use 100 mg vials for each dissolution. * Epinephrine (1mg/1 ml) 0.3 mg subcutaneously or IVP now with any signs of respiratory distress. * Check with physician for new additional pre-med orders if patient is re- challenged or re-treated. [x] May remove PICC line when treatment complete, after confirming with Physician. [x] If the patient is admitted to the hospital, the ED, or transferred via EVAC , complete transfer form including medication reconciliation order sheet. Laboratory Tests Weekly Labs: CBC w/diff Morena Bennett MD December 06, 2017 09:52
[2017-12-06] MEDS: SODIUM CHLORIDE 0.9% FLUSH 10 ML FLUSH IV FLUSH SCH (10:01)
[2017-12-06] MEDS: ACETAMINOPHEN/HYDROcodone 325 MG/5 MG TAB PO PRN (10:04)
[2017-12-06] MEDS: LISINOPRIL 10 MG TAB PO SCH (10:05)
[2017-12-06] MEDS: SEVELAMER CARBONATE 800 MG TAB PO SCH ×3 (10:05→18:36)
--- NOTE | 2017-12-06 10:34 | HHI.FF ---
Face to Face Verification Diagnosis: (1) gangrenous cystitis (2) ESRD (end stage renal disease) on dialysis (3) DM (diabetes mellitus) (4) Hypertension (5) Hyperlipidemia (6) CAD (coronary artery disease) Home Health Nursing Order: Medical education Signs/symptoms of disease process Nursing assessment with vital signs IV medication administration I have seen patient Ida Stewart on 12/06/17. My clinical findings support the need for the requested home health care services because: Limited ability to care for self Infection w/ risk of complications Injectable med education/admin I certify that my clinical findings support that this patient is homebound because: Unsafe to leave home unassisted Unable to use public transportation Kecia Váqzuez PA-C December 06, 2017 10:34
[2017-12-06] MEDS ORDERED: INVA1INJ IV (10:37)
[2017-12-06] MEDS ORDERED: ceFAZolin 2 GM PREMIX 50 ML IV SCH (10:45)
[2017-12-06] MEDS ORDERED: VANCOMYCIN INJ 1,000 MG in SODIUM CHLOR 0.9% 250 ML INJ 250 ML IV SCH (10:45)
--- NOTE | 2017-12-06 11:29 | HHI.IDPN ---
Subjective Subjective Remarks doing better, lower abd pain is improving no fever nl WBC Antibiotics zosyn Past Medical History DM ESRD/HD M-W-F Allergies: Coded Allergies: acetaminophen (Unverified Allergy, Severe, ITCH, 12/03/17) ketorolac (Unverified Allergy, Severe, HIVES, 12/03/17) oxycodone (Unverified Allergy, Severe, ITCH, 12/03/17) *MDRO Multi-Drug Resistant Organism (Verified Allergy, Unknown, 12/03/17) MRSA 03/2008 SPUTUM Objective . Vital Signs Date Time Temp Pulse Resp B/P (MAP) Pulse Ox O2 Delivery O2 Flow Rate FiO2 12/06/17 07:26 98.4 76 18 123/56 (78) 98 12/06/17 04:00 99.6 75 16 126/59 (81) 96 12/06/17 04:00 18 12/06/17 00:00 99.6 87 16 106/55 (72) 96 12/05/17 21:01 99.7 90 16 145/65 (91) 98 12/05/17 19:49 98 12/05/17 17:36 98.1 85 18 133/62 (85) 97 12/06/17 12/06/17 12/07/17 15:00 23:00 07:00 Intake Total 50 ml Balance 50 ml IV Total 50 ml . Microbiology Date/Time Source Procedure Growth Status 12/03/17 22:25 Urine Clean Catch Urine Culture - Preliminary Escherichia Coli Resulted Imaging Last Impressions Abdomen/Pelvis CT 12/03/170 Signed Impressions: CONCLUSION: Abnormal gas collection within the bladder wall with a few gas marvel bles outside of the bladder and findings are mostly consistent with gangrenous cystitis. Findings were discussed with Dr Cerda at the time of this dictation a t 11:52 hours. Physical Exam CONSTITUTIONAL/GENERAL: This is an adequately nourished patient, in no apparent distress. TUBES/LINES/DRAINS: SKIN: No jaundice, rashes, or lesions. CARDIOVASCULAR: Regular rate and rhythm without murmurs, gallops, or rubs. No JVD. Peripheral pulses diminished on bl feet RESPIRATORY/CHEST: Symmetric, unlabored respirations. Clear to auscultation. Breath sounds equal bilaterally. No wheezes, rales, or rhonchi. GASTROINTESTINAL: Abdomen soft, non-tender, nondistended. No hepato-splenomegaly , or palpable masses. No guarding. Bowel sounds present. GENITOURINARY: Without palpable bladder distension. Much less tender to palpation in suprapubic area and lower abdomen Barreto in place with tea colored urine MUSCULOSKELETAL: Extremities without clubbing, cyanosis, or edema. NEUROLOGICAL: Awake and alert. NOn focal PSYCHIATRIC: No obvious anxiety/depression. no apparent hallucinations or other psychotic thought process. Assessment & Plan Remarks DM ESRD with oliguria Emphasematous cystytis - quite distended bladder on scan with residfula urine Complicated UTI, E.coli; no oral options Irregular sensitivitites to cephalosporine noted ? ESBL PLAN; cont zosyn cont barreto x 2 weeks per urology rec's arrange for HHC with Ertapenem HICkmann x [address] Nicole after d/c javier nicrolab javier primary team javier Galicia regvaibhav approval of line will follow final ID/S on E.coli; i OK to dc home while everything is arranged Morena Bennett MD December 06, 2017 11:29
[2017-12-06] MEDS ORDERED: EPIN1INJ21 IV PUSH (11:33)
[2017-12-06] MEDS ORDERED: EPIN1INJ21 SQ (11:33)
[2017-12-06] MEDS ORDERED: SOLU250I IV PUSH (11:33)
[2017-12-06] MEDS ORDERED: LORazepam 2 MG/ML VIAL ONE (11:37)
[2017-12-06] MEDS ORDERED: SODIUM CHLOR 0.9% 250 ML INJ 250 ML ONE (11:40)
[2017-12-06] MEDS ORDERED: LIDOCAINE 1%/EPINEPHrine 1:100,000 SOLN 30 ML VIAL ONE (11:43)
[2017-12-06] MEDS ORDERED: SODIUM CHLORIDE 0.9% FLUSH 10 ML FLUSH IVF PRN (12:30)
--- NOTE | 2017-12-06 12:35 | PD.RAD ---
Post Procedure Progress Note Pre Procedure Diagnosis: (1) gangrenous cystitis Post Procedure Diagnosis: (1) gangrenous cystitis Procedure Date: December 06, 2017 Supervising Radiologist: Franco Lugo Estimated blood loss: 3cc Anesthesia: Local, Conscious Sedation Plan of Activity Patient to Unit: Nursing Unit Patient Condition: Good Additional Comments: Jacobson cath placed via the left IJ catheter in good position OK for use See PACS Report for procedural detail/treatment Franco Lugo MD December 06, 2017 12:35
[2017-12-06 13:51] VITALS: O2SAT 98
[2017-12-06 14:47] VITALS: BP 148/67; PULSE 75; RESP 18; TEMP 97.5; O2SAT 97
--- NOTE | 2017-12-06 17:15 | RADRPT ---
EXAM DATE: 12/06/2017 12:51 PM EDT AGE/SEX: 72 years / Female INDICATIONS: Patient with recent findings of gangrenous cystitis. Will be on antibiotic therapy for 2 weeks. CLINICAL DATA: This is the patient's initial encounter. Patient reports that signs and symptoms have been present for 3 days and indicates a pain score of 0/10. MEDICAL/SURGICAL HISTORY: Hypertension. Diabetes. Chronic renal failure. CAD,COPD,hyperlipid emiachronic neck and back pain Cholecystectomy. section. Tonsillectomy. coronary stent x 2 COMPARISON: No prior [place] exams available for comparison. FLUORO TIME (min): 2.59 IMAGE SERIES: 2 SEDATION TIME (min): 30 MEDICATION(S): 100 mcg fentanyl (Sublimaze) IV 1.0 mg lorazepam (Ativan) IV Prophylactic antibiotics were administered with appropriate pre-procedure timing. DEVICE(S): Left 6.6 fr single lumen jacobson PROCEDURE: 1. Ultrasound-guided puncture of the prescribed vein. 2. Fluoroscopic guidance. 3. Jacobson catheter placement 4. Conscious sedation with continuous EKG and oximetry monitoring. The risks, benefits and alternatives to the procedure were explained and verbal and written consent w as obtained. The site was prepped in sterile fashion. Full sterile technique was used, including ca p, mask, sterile gloves and gown and a large sterile sheet. Hand hygiene and 2% chlorhexidine Betadi ne was utilized per protocol for cutaneous antisepsis with appropriate dry time for site. Sterile ge l and sterile probe cover were utilized for ultrasound guidance. The skin and subcutaneous tissues w ere infiltrated with local anesthetic solution. With ultrasound and fluoroscopic guidance a dermatotomy was created in the supraclavicular region. A micropuncture set was used to access to the left internal jugular vein and serial dilatation was per formed to accept a Jacobson catheter. A subcutaneous tunnel was created and in antegrade fashion the catheter was pulled through the tunnel, cut to the appropriate length and place through the sheath. The catheter was locked with heparin and sutured in place. Conscious sedation was performed with the prescribed dosages and duration as above in the presence of an independent trained radiology nurse to assist in the monitoring of the patient. EKG and oximetry remained stable throughout the procedure. The patient tolerated the procedure well and there were no complications. The patient was sent to post anesthesia recovery in stable condition. CONCLUSION: 1. Uncomplicated Jacobson catheter placement as above. Electronically signed by: Franco Lugo MD 12/06/2017 5:13 PM EDT
[2017-12-06] MEDS: CINACALCET HYDROCHLORIDE 30 MG TAB PO SCH (18:37)
[2017-12-07] MEDS ORDERED: SODIUM CHLORIDE 0.9% FLUSH 10 ML FLUSH IVF SCH (09:00)
== END 2017-12-06 19:05 | disposition home or self-care (01) ==
LOC: NEPC 21:46 → UNDOADMIN 12-04 00:23 → NEDA 12-04 00:23 → NEPFCDU 12-04 01:34
PROVIDERS: ADMIT Family Medicine; ATTEND Family Medicine
DX: N30.01 Acute cystitis with hematuria (principal); R10.30 Lower abdominal pain, unspecified; R30.0 Dysuria; R50.9 Fever, unspecified; R11.10 Vomiting, unspecified; M19.90 Unspecified osteoarthritis, unspecified site; E78.00 Pure hypercholesterolemia, unspecified; I50.9 Heart failure, unspecified; I13.2 Hypertensive heart and chronic kidney disease with heart failure and with stage 5 chronic kidney disease, or end stage renal disease; J44.9 Chronic obstructive pulmonary disease, unspecified; I25.10 Atherosclerotic heart disease of native coronary artery without angina pectoris; G43.909 Migraine, unspecified, not intractable, without status migrainosus; I25.2 Old myocardial infarction; N18.6 End stage renal disease; Z99.2 Dependence on renal dialysis; Z95.5 Presence of coronary angioplasty implant and graft; E78.5 Hyperlipidemia, unspecified; M54.2 Cervicalgia; M54.9 Dorsalgia, unspecified; G89.29 Other chronic pain; A04.72 Enterocolitis due to Clostridium difficile, not specified as recurrent; E11.22 Type 2 diabetes mellitus with diabetic chronic kidney disease; E11.52 Type 2 diabetes mellitus with diabetic peripheral angiopathy with gangrene; R34 Anuria and oliguria; Z79.01 Long term (current) use of anticoagulants; Z79.899 Other long term (current) drug therapy; Z79.84 Long term (current) use of oral hypoglycemic drugs; B96.20 Unspecified Escherichia coli [E. coli] as the cause of diseases classified elsewhere; E87.2 Acidosis; R19.7 Diarrhea, unspecified; F51.04 Psychophysiologic insomnia
CPT/HCPCS: 36558; 74176; 76937; 77001; 80053; 81001; 82948; 85025; 85610; 85730; 87077; 87086; 87186; 90935; 96365; 96366; 96372; 96374; 96375; 96376; 97162; 99285; C1751; C1769; G0378; G8987; G8988; J0696; J0780; J1642; J1644; J1815; J2060; J2270; J2543; J3010; J7050; Q4081

== ENCOUNTER 2017-12-20 13:01 | Day surgery (SDC) | payer OTHER, MEDICAID ==
[~2017-12-20 13:01] MED LIST changes: -ALBU8I INH; +ASPI-516 PO; -ASPI81 PO; -CLOP75 PO; +EPIN1INJ21 IV PUSH; +EPIN1INJ21 SQ; +FURO1TAB60 PO; -FURO1TAB93 PO; -GLIP5 PO; +GLIP5TAB8 PO; -HYDR100T2 PO; +INVA1INJ IV; -ISOS60 PO; -LISI-360 PO; +LISI10TA3 PO; -METO50 PO; -MIRA33502 PO; +PLAV75TA29 PO; -POTA-243 PO; -PROC90TA PO; +REGL5TAB PO; +SENS60TA PO; +SENS90TA PO; +SEVEL800 PO; +SIMV20TA PO; -SIMV40 PO; +SOLU250I IV PUSH; +VENTAER INH; -ZOLP1TAB32 PO
[2017-12-20 13:41] VITALS: BP 120/70; PULSE 98; RESP 18; TEMP 98.4; O2SAT 94
[2017-12-20] MEDS ORDERED: LIDOCAINE 1%/EPINEPHrine 1:100,000 SOLN 20 ML VIAL ONE (14:47)
[2017-12-20 15:00] VITALS: BP 143/65; PULSE 86; RESP 18; TEMP 98; O2SAT 96
--- NOTE | 2017-12-20 15:00 | PD.RAD ---
Post Procedure Progress Note Pre Procedure Diagnosis: (1) gangrenous cystitis Post Procedure Diagnosis: (1) gangrenous cystitis Procedure Date: Dec 20, 2017 Supervising Radiologist: Franco Lugo Estimated blood loss: none Anesthesia: Local Plan of Activity Patient to Unit: ROPU Patient Condition: Good Additional Comments: Jacobson catheter removed from the left chest without difficulty. Full report to follow See PACS Report for procedural detail/treatment Franco Lugo MD Dec 20, 2017 15:00
[2017-12-20 15:15] VITALS: BP 140/65; PULSE 80; RESP 18; O2SAT 96
--- NOTE | 2017-12-24 13:41 | RADRPT ---
EXAM DATE: 12/20/2017 3:14 PM EDT AGE/SEX: 72 years / Female INDICATIONS: Patient with history of gangrenous cystitis in need of jacobson catheter removal. CLINICAL DATA: This is the patient's subsequent encounter. Patient reports that signs and symptoms h ave been present for 3 weeks and indicates a pain score of 0/10. MEDICAL/SURGICAL HISTORY: Diabetes. Chronic obstructive pulmonary disease. Cardiovascular dis ease. ESRD on hemodialysis.C-Diff.HTN.CAD.HLDChronic neck and back pain. Cholecystectomy. Hysterec andreas. Tonsillectomy. Cardiac stent X2.Jacobson catheter COMPARISON: No prior exams available for comparison. IMAGE SERIES: 0 ACCESS SITE: DEVICE(S): PROCEDURE: 1. PermaCath removal. The risks, benefits and alternatives to the procedure were explained and verbal and written consent w as obtained. The site was prepped in sterile fashion. Full sterile technique was used, including ca p, mask, sterile gloves and gown and a large sterile sheet. Hand hygiene and 2% chlorhexidine and/or betadine/alcohol prep was utilized per protocol for cutaneous antisepsis. The skin and subcutaneous tissues were infiltrated with local anesthetic solution. The tract was anesthetized with 1% Lidocaine using. The Jacobson was dissected from the subcutaneous tissues and easily removed in one piece. Manual pressure was applied to the venotomy site until hemo stasis was obtained. Sterile dressing was applied. The patient tolerated the procedure well and there were no complications. CONCLUSION: 1. Uncomplicated Jacobson removal. Electronically signed by: Franco Lugo MD 12/24/2017 1:40 PM EDT
== END 2017-12-20 15:35 | disposition home or self-care (01) ==
LOC: HROP 13:01 → HRIP 13:02 → HROP 15:35
PROVIDERS: ATTEND Internal Medicine Infectious Disease
DX: Z45.2 Encounter for adjustment and management of vascular access device (principal); N30.80 Other cystitis without hematuria
CPT/HCPCS: 36589